=== PATIENT | male | born 1930 | race Caucasian/White ===

== ENCOUNTER 2017-01-27 11:32 | Emergency (ER) | payer MEDICARE ==
[~2017-01-27] VITALS: Ht 180.3 cm; Wt 108.9 kg
[~2017-01-27 11:32] MED LIST: "\\\"BP MED\\\""; FURO20TA4 PO; HYDR1TAB PO; METO-272 PO; PARO10TA21 PO; POTASSIUM
--- OUTSIDE RECORDS SUMMARY | 2017-01-27 11:40 | XMS REPORT ---
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
--- NOTE | 2017-01-27 12:08 | ED EENT ---
History of Present Illness General Chief Complaint: Nasal Problems Stated Complaint: NOSE BLEED Nursing Triage Note: pt reports his nose started bleeding three days ago. pt reports he saw Dr. Burciaga in his clinic yesterday and had his r nare cauterized and packed. Pt reports now the l and r side are bleeding. Source: patient Exam Limitations: no limitations History of Present Illness Time seen by provider: 12:05 Initial Comments To ER with reports of a nosebleed 3 days. He is not on any blood thinners he states. He saw Dr. Burciaga in his clinic yesterday for this and had cautery and packing to the right nostril. This morning he awakened and had blood coming from the left naris. He is scheduled to follow-up with Dr. Burciaga tomorrow at 345 p.m. Timing/Duration: this morning Severity: moderate Location: nose Allergies and Home Medications Allergies Coded Allergies: No Known Drug Allergies (Unverified , 05/09/10) Home Medications Metoprolol Succinate 50 Mg Tab.er.24h 50 MG PO DAILY (Reported) Review of Systems Constitutional: see HPI Eyes: No Symptoms Reported Ears: No Symptoms Reported Nose: see HPI clots congestion epistaxis Mouth: no symptoms reported Throat: no symptoms reported Respiratory: no symptoms reported Cardiovascular: no symptoms reported Musculoskeletal: no symptoms reported Skin: no symptoms reported Past Zhghbqy-Aidspy-Hitdwk Hx Patient Social History Alcohol Use: Past History Recreational Drug Use: No Smoking Status: Never a Smoker Recent Foreign Travel: No Contact w/Someone Who Travel: No Recent Infectious Disease Expo: No Recent Hopitalizations: No Immunizations Up To Date Tetanus Booster (TDap): Unknown PED Vaccines UTD: No Date of Pneumonia Vaccine: Dec 12, 2010 Date of Influenza Vaccine: Aug 11, 2015 Seasonal Allergies Seasonal Allergies: No Surgeries HX Surgeries: Yes (RIGHT KNEE) Surgeries: Orthopedic Respiratory Hx Respiratory Disorders: Yes Respiratory Disorders: Sleep Apnea Cardiovascular Hx Cardiac Disorders: Yes Cardiac Disorders: Hypertension Neurological Hx Neurological Disorders: Yes Reproductive System Hx Reproductive Disorders: No Sexually Transmitted Disease: No HIV/AIDS: No Genitourinary Hx Genitourinary Disorders: No ("SYEDA PENNY SAYS KIDNEYS ARE SLOW") Gastrointestinal Hx Gastrointestinal Disorders: No Musculoskeletal Hx Musculoskeletal Disorders: Yes Musculoskeletal Disorders: Arthritis Endocrine Hx Endocrine Disorders: No HEENT HX ENT Disorders: Yes (CAUTERIZED NOSEBLEED) HEENT Disorders: Cataract Loss of Vision: Denies Hearing Impairment: Hard of Hearing Cancer Hx Cancer: No Psychosocial Hx Psychiatric Problems: No Integumentary HX Skin/Integumentary Disorder: No Blood Transfusions Hx Blood Disorders: No Adverse Reaction to a Blood Tr: No Family Medical History Significant Family History: Heart Disease Family Medial History: Alcoholism 03 FATHER, Cancer 03 MOTHER, Family history: Arthritis 03 MOTHER, Family history: Diabetes mellitus 03 MOTHER, Headache 03 FATHER, 03 MOTHER, 09 BROTHER, 09 BROTHER, 09 SISTER, Myocardial infarction 03 FATHER, No Family History of: Abdominal aortic aneurysm Hayder's disease Aphasia Cancer of colon Cataract Chest pain Congenital heart disease Congestive heart failure Cystic fibrosis Dementia Dysphagia Family history: Allergy Family history: Alzheimer's disease Family history: Asthma Family history: Breast disease Family history: Cardiovascular disease Family history: Coronary thrombosis Family history: Gastrointestinal disease Family history: Glaucoma Family history: Hypertension Family history: Osteoporosis Family history: Thyroid disorder Hearing loss Heart disease Hereditary disease History of - anemia History of - disorder History of - respiratory disease History of drug abuse Human immunodeficiency virus (HIV) seropositivity Hypercholesterolemia Infertile Kidney disease Malignant neoplasm of lung Parkinson's disease Prostate cancer Psychotic disorder Seizure disorder Stroke Tuberculosis Visual impairment Physical Exam Vital Signs Vital Sign - Last 12Hours 01/27/17 11:49 Temp 97.6 Pulse 87 Resp 18 B/P 132/108 Pulse Ox 95 General Appearance: WD/WN no apparent distress Eyes: bilateral eye EOMI, bilateral eye PERRL, bilateral eye normal inspection Ears: bilateral ear TM normal, bilateral ear auricle normal, bilateral ear canal normal Nose: No active bleeding, other (clots easily suctioned out with no active bleeding seen at this time. We will observe him) Mouth/Throat: normal mouth inspection pharynx normal (dried blood in the mouth and oropharynx) Neck: non-tender full range of motion Respiratory: normal breath sounds no respiratory distress no accessory muscle use Neurologic/Psychiatric: alert normal mood/affect oriented x 3 Skin: normal color warm/dry Progress/Results/Core Measures Results/Orders Lab Results Laboratory Tests Test 01/27/17 12:19 Range/Units Anion Gap 10 5-14 MMOL/L BUN/Creatinine Ratio 15 Basophils # (Auto) 0.0 0.0-0.1 10^3/uL Basophils (%) (Auto) 0 0-10 % Blood Urea Nitrogen 26 H 7-18 MG/DL Calcium Level 8.4 L 8.5-10.1 MG/DL Carbon Dioxide Level 21 21-32 MMOL/L Chloride Level 108 H 98-107 MMOL/L Creatinine 1.71 H 0.60-1.30 MG/DL Eosinophils # (Auto) 0.3 0.0-0.3 10^3/uL Eosinophils (%) (Auto) 7 0-10 % Estimat Glomerular Filtration Rate 38 Glucose Level 117 H 70-105 MG/DL Hematocrit 37 L 40-54 % Hemoglobin 12.1 L 13.3-17.7 G/DL INR Comment 1.0 0.8-1.4 Lymphocytes # (Auto) 0.6 L 1.0-4.0 X 10^3 Lymphocytes (%) (Auto) 13 12-44 % Mean Corpuscular Hemoglobin 30 25-34 PG Mean Corpuscular Hemoglobin Concent 33 32-36 G/DL Mean Corpuscular Volume 92 80-99 FL Mean Platelet Volume 10.3 7.4-10.4 FL Monocytes # (Auto) 0.6 0.0-1.0 X 10^3 Monocytes (%) (Auto) 12 0-12 % Neutrophils # (Auto) 3.5 1.8-7.8 X 10^3 Neutrophils (%) (Auto) 68 42-75 % Platelet Count 188 130-400 10^3/uL Potassium Level 4.4 3.6-5.0 MMOL/L Prothrombin Time 13.0 12.2-14.7 SEC Red Blood Count 4.01 L 4.35-5.85 10^6/uL Red Cell Distribution Width 13.9 10.0-14.5 % Sodium Level 139 135-145 MMOL/L White Blood Count 5.1 4.3-11.0 10^3/uL My Orders Orders-ORACIO CHERY APRN Cbc With Automated Diff (01/27/17 12:05) Basic Metabolic Panel (01/27/17 12:05) Protime With Inr (01/27/17 12:05) Vital Signs/I&O Vital Sign - Last 12Hours 01/27/17 01/27/17 11:49 13:44 Temp 97.6 97.6 Pulse 87 85 Resp 18 18 B/P 132/108 Pulse Ox 95 96 Blood Pressure Mean: 116 Departure Communication Progress Notes 1237-patient is spitting up a small amount of blood that there is no blood dripping from the left Wilks now that I have removed his Kleenex. No blood dripping from the left Nare for at least 30 minutes despite sitting in the upright position. I think the blood that he is spitting up his previous clot from overnight and from the right side. 1300 still no bleeding, I was going to send patient home however he is concerned that if he lays flat he will start to bleed again. So I have laid him flat.- Impression Impression: Primary Impression: Epistaxis Disposition: 01 HOME, SELF-CARE Condition: Stable Departure-Patient Inst. Decision time for Depature: 13:30 Referrals: NO,LOCAL PHYSICIAN (PCP/Family) Primary Care Physician Patient Instructions: Nosebleeds (DC) Add. Discharge Instructions: 1. Return to ER for any concerns 2. Keep the packing in your right nose 3. Follow-up with Dr. Burciaga All discharge instructions reviewed with patient and/or family. Voiced understanding. ORACIO CHERY APRN Jan 27, 2017 12:08
[2017-01-27 12:27] LABS: BASOPHILS % (AUTO) 0 % (0-10); EOSINOPHILS # (AUTO) 0.3 10^3/uL (0.0-0.3); EOSINOPHILS % (AUTO) 7 % (0-10); LYMPHOCYTES # (AUTO) 0.6 X 10^3 (1.0-4.0); LYMPHOCYTES % (AUTO) 13 % (12-44); MEAN CORPUSCULAR HEMOGLOBIN 30 PG (25-34); MEAN CORPUSCULAR HGB CONC 33 G/DL (32-36); MEAN CORPUSCULAR VOLUME 92 FL (80-99); MEAN PLATELET VOLUME 10.3 FL (7.4-10.4); MONOCYTES # (AUTO) 0.6 X 10^3 (0.0-1.0); MONOCYTES % (AUTO) 12 % (0-12); NEUTROPHILS # (AUTO) 3.5 X 10^3 (1.8-7.8); NEUTROPHILS % (AUTO) 68 % (42-75); PLATELET COUNT 188 10^3/uL (130-400); RED BLOOD COUNT 4.01 10^6/uL (4.35-5.85); RED CELL DISTRIBUTION WIDTH 13.9 % (10.0-14.5); WHITE BLOOD COUNT 5.1 10^3/uL (4.3-11.0)
[2017-01-27 12:49] LABS: CALCIUM 8.4 MG/DL (8.5-10.1); CREATININE SERUM 1.71 MG/DL (0.60-1.30); POTASSIUM 4.4 MMOL/L (3.6-5.0)
[2017-01-27 13:44] VITALS: BP 132/98
[2017-01-28] MEDS ORDERED: DEXAMETHASONE PF 10 MG/ML (DECADRON) VIAL ONE (11:39)
[2017-01-28] MEDS ORDERED: LACTATED RINGERS 1,000 ML IV ONE (11:39)
[2017-01-28] MEDS ORDERED: SEVOFLURANE (ULTANE) 15 ML INHAL SOLN ONE ×3 (11:39→11:51)
[2017-01-28] MEDS ORDERED: proPOfol 200 MG/20 ML (DIPRIVAN) VIAL IV ONE (11:39)
[2017-01-28] MEDS ORDERED: LIDOCAINE PF 2% 10 ML (XYLOCAINE) AMP ONE (11:39)
[2017-01-28] MEDS ORDERED: HURRICAINE EXT TUBE (BENZOCAINE) ONE (11:39)
[2017-01-28] MEDS ORDERED: ATRACURIUM 50 MG/5 ML (TRACRIUM) IV ONE (11:39)
[2017-01-28] MEDS ORDERED: fentaNYL INJECTION 100 MCG/2 ML AMP ONE (11:40)
[2017-01-28] MEDS ORDERED: MIDAZOLAM 2 MG/2 ML (VERSED) VIAL ONE (11:41)
== END 2017-01-27 13:44 | disposition home or self-care (01) ==
LOC: EDUNIT# 11:32 → ER 11:33
DX: R04.0 Epistaxis (principal); I10 Essential (primary) hypertension; Z79.899 Other long term (current) drug therapy
CPT/HCPCS: 36415; 80048; 85025; 85610; 99283

== ENCOUNTER 2017-01-28 11:33 | Day surgery (SDC) | payer MEDICARE ==
[~2017-01-28] VITALS: Ht 180.3 cm; Wt 108.9 kg
[~2017-01-28 11:33] MED LIST changes: +COCAINE HCL 4% 2 ML SYR ONE; +LIDOCAINE/EPI 1%-1:100,000 (XYLOCAINE) 20ML ONE; +MUPIROCIN 2% OINT 22 GM (BACTROBAN) TUBE ONE; +PHENYLEPHRINE 0.5% NASAL SPR (NEO-SYNEPHRINE) REG ONE
[2017-01-28 12:01] VITALS: BP 120/85
--- NOTE | 2017-01-28 12:02 | Progress Note-Pre Operative ---
Pre-Operative Progress Note H&P Reviewed The H&P was reviewed, patient examined and no changes noted. Date H&P Reviewed: Jan 28, 2017 Time H&P Reviewed: 11:40 Pre-Operative Diagnosis: REcurrent Right Posterior Epistaxis BRENNAN PRUITT MD Jan 28, 2017 12:02 pm
[2017-01-28] MEDS ORDERED: PHENYLEPHRINE 0.5% NASAL SPR (NEO-SYNEPHRINE) REG ONE (12:30)
--- NOTE | 2017-01-28 12:42 | Progress Note-Post Operative ---
Post-Operative Progess Note Pre-Operative Diagnosis REcurrent Right Posterior Epistaxis Post-Operative Diagnosis same Post-Op Procedure Note Date of Procedure: Jan 28, 2017 Name of Procedure: Endoscopic Repari of Right Posteiror Epistaxis with Packing Anesthesia Type get Estimated blood loss (mL): BRENNAN De Leon MD Jan 28, 2017 12:42 pm
[2017-01-28] MEDS ORDERED: ACETAMINOPHEN 500 MG TAB (TYLENOL) PO PRN (12:45)
[2017-01-28] MEDS ORDERED: HYDROcodone/APAP 5 MG/325 MG (LORTAB) TAB PO PRN (12:45)
[2017-01-28] MEDS ORDERED: PROMETHAZINE INJ 25 MG/ML (PHENERGAN) AMP IV PRN (13:00)
[2017-01-28] MEDS ORDERED: morphine INJ 10 MG/ML 1ML (SYR OR VIAL) IV PRN (13:00)
[2017-01-28] MEDS ORDERED: MEPERIDINE (DEMEROL) INJ 50 MG/ML IV PRN (13:00)
[2017-01-28] MEDS ORDERED: fentaNYL INJECTION 100 MCG/2 ML AMP IV PRN (13:00)
[2017-01-28] MEDS ORDERED: ONDANSETRON 4 MG/2 ML (SDV) Z0FRAN IV PRN (13:00)
[2017-01-28] MEDS: D5 1/2 NS W/KCL 20 MEQ/L 1,000 ML IV SCH ×2 (14:23→22:36)
[2017-01-28 14:44] VITALS: BP 157/80
[2017-01-28] MEDS: PHENYLEPHRINE 0.5% NASAL SPR (NEO-SYNEPHRINE) REG PRN ×2 (15:33→20:37)
[2017-01-28 16:26] VITALS: BP 152/88
[2017-01-28] MEDS: MUPIROCIN 2% OINT 22 GM (BACTROBAN) TUBE NSEACH SCH (20:36)
[2017-01-28 20:44] VITALS: BP 136/78
[2017-01-28] MEDS ORDERED: MUPIROCIN 2% OINT 22 GM (BACTROBAN) TUBE NSEACH SCH (21:00)
[2017-01-29] VITALS: BP 136/78
[2017-01-29 04:05] VITALS: BP 147/86
[2017-01-29] MEDS ORDERED: SALINE NASAL SPRAY (OCEAN) 45 ML BTL PRN (06:45)
--- NOTE | 2017-01-29 06:48 | Progress Note-Standard ---
Standard Progress Note Progress Notes/Assess & Plan Progress/Assessment & Plan ENT-Gualberto Doing Well Minimal oozing since surgery-oozing related to him bothering his nose Packing is intact and dry OP DRy Will get him home mid afternoon as long as no sign bleeding will need to leave packing in until [id number] for removal Discharge prescriptions inchart patient may take home medications send home with nosebleed insturctions label and send home both ocean nasal spray to use prn to keep moist and neosynephrine to clau if bleeds Final Diagnosis Right Posterior Epistaxis BRENNAN PRUITT MD Jan 29, 2017 6:48 am
[2017-01-29] MEDS ORDERED: CATHETER FLUSH 10 ML SYR IV PRN (07:00)
[2017-01-29 07:58] VITALS: BP 168/72
[2017-01-29] MEDS: MUPIROCIN 2% OINT 22 GM (BACTROBAN) TUBE NSEACH SCH (10:06)
[2017-01-29] MEDS: D5 1/2 NS W/KCL 20 MEQ/L 1,000 ML IV SCH (11:42)
[2017-01-29 12:26] VITALS: BP 152/68
--- NOTE | 2017-01-29 12:37 | Anesthesia-General Post-Op ---
General Patient Condition Mental Status/LOC: Same as Preop Cardiovascular: Satisfactory Nausea/Vomiting: Absent Respiratory: Satisfactory Pain: Controlled Complications: Absent Post Op Complications Complications None Follow Up Care/Instructions Patient Instructions None needed. Anesthesia/Patient Condition Patient Condition Patient is doing well, no complaints, stable vital signs, no apparent adverse anesthesia problems. No complications reported per nursing. JUANITO GR CRNA Jan 29, 2017 12:37
[2017-01-29 15:45] VITALS: BP 135/81
[2017-01-29] MEDS ORDERED: RELABEL FOR HOME USE MC SCH (16:15)
[2017-01-29] MEDS ORDERED: SALINE NASAL SPRAY (OCEAN) 45 ML BTL SCH (16:30)
[2017-01-29] MEDS ORDERED: PHENYLEPHRINE 0.5% NASAL SPR (NEO-SYNEPHRINE) REG SCH (16:30)
== END 2017-01-29 17:10 | disposition home or self-care (01) ==
LOC: SDC 11:33 → 4TH 14:35 → SDC 01-29 17:10
PROVIDERS: ATTEND Otolaryngology Otolaryngology/Facial Plastic Surgery
DX: R04.0 Epistaxis (principal); I10 Essential (primary) hypertension; M19.90 Unspecified osteoarthritis, unspecified site
CPT/HCPCS: 94760

== ENCOUNTER 2017-10-04 09:27 | Emergency (ER) | payer MEDICARE ==
[~2017-10-04] VITALS: Ht 180.3 cm; Wt 99.8 kg
[~2017-10-04 09:27] MED LIST changes: -COCAINE HCL 4% 2 ML SYR ONE; -LIDOCAINE/EPI 1%-1:100,000 (XYLOCAINE) 20ML ONE; -METO-272 PO; +METO-370 PO; -MUPIROCIN 2% OINT 22 GM (BACTROBAN) TUBE ONE; -PHENYLEPHRINE 0.5% NASAL SPR (NEO-SYNEPHRINE) REG ONE
--- OUTSIDE RECORDS SUMMARY | 2017-10-04 09:33 | XMS REPORT ---
Author Author BENITA MATHIS Organization eClinicalWorks Address Unknown Phone Unavailable Care Team Providers Care Photographic Spotter Name Role Phone BENITA MATHIS CP Unavailable Allergies, Adverse Reactions, Alerts Substance Reaction Event Type N.K.D.A. 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 Active Assessment Dermoid cyst of arm, left D23.62 Active Assessment Dizziness R42 Active Problem Arthritis M19.90 Active Problem Chronic kidney disease N18.9 Active Medications No Known Medications Procedures Procedure Coding System Code Date Office Visit, Est Pt., Level 3 CPT-4 77154 Jul 10, 2016 [facility] VISIT ESTABLISHED PATIENT CPT-4 G0467 Jul 10, 2016 Vital Signs Date/Time: Jul 10, 2016 Cardiac Monitoring Heart Rate 78 bpm Weight 226.8 lbs Height 97 in BMI 16.95 Index Blood Pressure Diastolic 76 mmHg Blood Pressure Systolic 124 mmHg Results No Known Results Summary Purpose eClinicalWorks Submission
--- OUTSIDE RECORDS SUMMARY | 2017-10-04 09:33 | XMS REPORT ---
Author Author LESLY SAWYER [facility] eClinicalWorks Address Unknown Phone Unavailable Care Team Providers Care Plaster Pattern Caster Name Role Phone LESLY SAWYER CP Unavailable [...] Start Date End Date Status Dosage Hydrocodone-Acetaminophen [facility] [address]-64 5-325 MG Orally bid, prn pain Sep 29, 2015 1 Results No Known Results Summary Purpose eClinicalWorks Submission
--- OUTSIDE RECORDS SUMMARY | 2017-10-04 09:33 | XMS REPORT ---
Author Author BORA BAKER Organization [facility] Address [address] [place] [address] Care Team Providers Care Manager Labor Relations Name Role Phone BORA BAKER Unavailable PROBLEMS Type Condition ICD9-CM Code [id number] Code Onset Dates Condition Status SNOMED Code Problem Interstitial lung disease J84.9 Active 480211258 Problem Chronic fatigue R53.82 Active 91831439 Problem Vertigo R42 Active 212748726 Problem Arthritis M19.90 Active 3650951 Problem Chronic kidney disease N18.9 Active 560389627 Problem Enlarged prostate with lower urinary tract symptoms N40.1 Active 581050052 Problem Hypertension I10 Active 00017952 ALLERGIES No Known Allergies SOCIAL HISTORY Never Assessed PLAN OF CARE Activity Details Follow Up prn Reason: VITAL SIGNS Height 97 in 2017-01-24 Weight 234.0 lbs 2017-01-24 Temperature 99.2 degrees Fahrenheit 2017-01-24 Heart Rate 82 bpm 2017-01-24 Respiratory Rate 20 2017-01-24 Oximetry 96 % 2017-01-24 BMI 17.48 kg/m2 2017-01-24 Blood pressure systolic 134 mmHg 2017-01-24 Blood pressure diastolic 90 mmHg 2017-01-24 MEDICATIONS Medication Instructions Dosage Frequency Start Date End Date Duration Status Keflex 500 MG Orally every 8 hrs 1 capsule 8h Jan, Jan, 5 days Active RESULTS Name Result Date Reference Range TSH 2017-01-24 TSH 3.810 0.450-4.500 CBC 2017-01-24 WBC 5.2 3.4-10.8 RBC 4.11 4.14-5.80 Hemoglobin 12.1 12.6-17.7 Hematocrit 37.1 37.5-51.0 MCV 90 79-97 MCH 29.4 26.6-33.0 MCHC 32.6 31.5-35.7 RDW 14.6 12.3-15.4 Platelets 205 150-379 Neutrophils 69 Lymphs 12 Monocytes 15 Eos 4 Basos 0 Neutrophils (Absolute) 3.6 1.4-7.0 Lymphs (Absolute) 0.6 0.7-3.1 Monocytes(Absolute) 0.8 0.1-0.9 Eos (Absolute) 0.2 0.0-0.4 Baso (Absolute) 0.0 0.0-0.2 Immature Granulocytes 0 Immature Grans (Abs) 0.0 0.0-0.1 LIPID PANEL 2017-01-24 Cholesterol, Total 125 100-199 Triglycerides 92 0-149 HDL Cholesterol 50 >39 VLDL Cholesterol Keven 18 5-40 LDL Cholesterol Calc 57 0-99 CMP 2017-01-24 Glucose, Serum 98 65-99 BUN 34 8-27 Creatinine, Serum 1.94 0.76-1.27 eGFR If NonAfricn Am 31 >59 eGFR If Africn Am 35 >59 BUN/Creatinine Ratio 18 10-22 Sodium, Serum 141 134-144 Potassium, Serum 5.2 3.5-5.2 Chloride, Serum 101 96-106 Carbon Dioxide, Total 22 18-29 Calcium, Serum 8.6 8.6-10.2 Protein, Total, Serum 6.4 6.0-8.5 Albumin, Serum 3.8 3.5-4.7 Globulin, Total 2.6 1.5-4.5 A/G Ratio 1.5 1.2-2.2 Bilirubin, Total <0.2 0.0-1.2 Alkaline Phosphatase, S 74 39-117 AST (SGOT) 7 0-40 ALT (SGPT) 6 0-44 PROCEDURES Procedure Date Ordered Result Body Site MEASURE BLOOD OXYGEN LEVEL January 24, 2017 [facility] January [facility], 2017 [facility] VISIT ESTABLISHED PATIENT January 24, 2017 VENIPUNCT, ROUTINE* January 24, 2017 IMMUNIZATIONS No Known Immunizations MEDICAL (GENERAL) HISTORY Type Description Date Medical History hypertension Medical History Heart attack-2011 Medical History Arthritis Medical History Chronic kidney disease Medical History Enlarged prostate with lower urinary tract symptoms Medical History Interstitial lung disease Medical History cataracts Surgical History Total Right knee replacement Hospitalization History stayed in [facility] for R. knee problems
--- OUTSIDE RECORDS SUMMARY | 2017-10-04 09:33 | XMS REPORT ---
Author Author LESLY SAWYER Organization [facility] Address [address] [place] [address] Care Team Providers Care Personnel Coordinator Name Role Phone LESLY SAWYER Unavailable PROBLEMS Type Condition ICD9-CM Code [id number] Code Onset Dates Condition Status SNOMED Code Problem Interstitial lung disease J84.9 Active 092740919 Problem Chronic fatigue R53.82 Active 44547709 Problem Vertigo R42 Active 992937304 Problem Arthritis M19.90 Active 0149818 Problem Chronic kidney disease N18.9 Active 858689267 Problem Enlarged prostate with lower urinary tract symptoms N40.1 Active 947800524 Problem Hypertension I10 Active 26704566 ALLERGIES No Information SOCIAL HISTORY Never Assessed PLAN OF CARE VITAL SIGNS MEDICATIONS Unknown Medications RESULTS Name Result Date Reference Range PTT 2017-01-25 aPTT 31 24-33 PT/INR 2017-01-25 INR 1.0 0.8-1.2 Prothrombin Time 10.4 9.1-12.0 PROCEDURES Procedure Date Ordered Result Body Site LAB NOT BILLED BY [facility] January 25, 2017 PROTHROMBIN TIME January 25, 2017 VENIPUNCT, ROUTINE* January 25, 2017 IMMUNIZATIONS No Known Immunizations MEDICAL (GENERAL) HISTORY Type Description Date Medical History hypertension Medical History Heart attack-2010 Medical History Arthritis Medical History Chronic kidney disease Medical History Enlarged prostate with lower urinary tract symptoms Medical History Interstitial lung disease Medical History cataracts Surgical History Total Right knee replacement Hospitalization History stayed in [facility] for R. knee problems
--- OUTSIDE RECORDS SUMMARY | 2017-10-04 09:33 | XMS REPORT ---
Author Author LESLY SAWYER [facility] Address [address] [place] [address] Care Team Providers Care Body Specialist Name Role Phone LESLY SAWYER Unavailable PROBLEMS Type Condition ICD9-CM Code [id number] Code Onset Dates Condition Status SNOMED Code Problem Interstitial lung disease J84.9 Active 580354953 Problem Chronic fatigue R53.82 Active 09387003 Problem Vertigo R42 Active 814695843 Problem Arthritis M19.90 Active 4114891 Problem Chronic kidney disease N18.9 Active 459356847 Problem Enlarged prostate with lower urinary tract symptoms N40.1 Active 335727903 Problem Hypertension I10 Active 75573743 ALLERGIES No Information SOCIAL HISTORY Never Assessed PLAN OF CARE VITAL SIGNS MEDICATIONS Unknown Medications RESULTS No Results PROCEDURES No Known procedures IMMUNIZATIONS No Known Immunizations MEDICAL (GENERAL) HISTORY Type Description Date Medical History hypertension Medical History Heart attack-2010 Medical History Arthritis Medical History Chronic kidney disease Medical History Enlarged prostate with lower urinary tract symptoms Medical History Interstitial lung disease Medical History cataracts Surgical History Total Right knee replacement Hospitalization History stayed in [facility] for R. knee problems
--- OUTSIDE RECORDS SUMMARY | 2017-10-04 09:33 | XMS REPORT ---
Author Author LESLY SAWYER [facility] Address [address] [place] [address] Care Team Providers Care Experimental Psychologist Name Role Phone LESLY SAWYER Unavailable PROBLEMS Type Condition ICD9-CM Code EBM26-BD Code Onset Dates Condition Status SNOMED Code Problem Interstitial lung disease J84.9 Active 817357381 Problem Chronic fatigue R53.82 Active 57249670 Problem Vertigo R42 Active 914273458 Problem Arthritis M19.90 Active 6271836 Problem Chronic kidney disease N18.9 Active 043960591 Problem Enlarged prostate with lower urinary tract symptoms N40.1 Active 227999865 Problem Hypertension I10 Active 30380362 ALLERGIES No Known Allergies SOCIAL HISTORY Never Assessed PLAN OF CARE Activity Details Follow Up 3 Months Reason: VITAL SIGNS Height 71 in 2017-04-01 Weight 217 lbs 2017-04-01 Temperature 98.0 degrees Fahrenheit 2017-04-01 Heart Rate 70 bpm 2017-04-01 Respiratory Rate 18 2017-04-01 BMI 30.26 kg/m2 2017-04-01 Blood pressure systolic 118 mmHg 2017-04-01 Blood pressure diastolic 72 mmHg 2017-04-01 MEDICATIONS Medication Instructions Dosage Frequency Start Date End Date Duration Status Tramadol HCl 50 mg Orally 3 times a day 1 tablet as needed 8h March, March, 0 days Active RESULTS No Results PROCEDURES Procedure Date Ordered Result Body Site [facility] VISIT ESTABLISHED PATIENT April 01, 2017 IMMUNIZATIONS No Known Immunizations MEDICAL (GENERAL) HISTORY Type Description Date Medical History hypertension Medical History Heart attack-2010 Medical History Arthritis Medical History Chronic kidney disease Medical History Enlarged prostate with lower urinary tract symptoms Medical History Interstitial lung disease Medical History cataracts Surgical History Total Right knee replacement Hospitalization History stayed in [facility] for R. knee problems
--- OUTSIDE RECORDS SUMMARY | 2017-10-04 09:33 | XMS REPORT ---
Author Author LESLY SAWYER [facility] Address [address] [place] [address] Care Team Providers Care Senior Librarian Name Role Phone LESLY SAWYER Unavailable PROBLEMS Type Condition ICD9-CM Code [id number] Code Onset Dates Condition Status SNOMED Code Assessment Vertigo R42 Jul, Active 796327506 Assessment Skin lesion L98.9 Jul, Active 00845800 Problem Vertigo R42 Active 745531206 Problem Enlarged prostate with lower urinary tract symptoms N40.1 Active 769500165 Problem Arthritis M19.90 Active 4059859 Problem Chronic kidney disease N18.9 Active 142315761 Problem Hypertension I10 Active 42433559 Problem Interstitial lung disease J84.9 Active 196065146 ALLERGIES Substance Reaction Event Type Date Status N.K.D.A. Unknown Non Drug Allergy Jul, Unknown SOCIAL HISTORY No smoking Hx information available PLAN OF CARE VITAL SIGNS Height 97 in 2016-07-13 Weight 225.3 lbs 2016-07-13 Heart Rate 76 bpm 2016-07-13 Respiratory Rate 20 2016-07-13 BMI 16.83 kg/m2 2016-07-13 Blood pressure systolic 112 mmHg 2016-07-13 Blood pressure diastolic 78 mmHg 2016-07-13 MEDICATIONS Medication Instructions Dosage Frequency Start Date End Date Duration Status Meclizine HCl 25 MG Orally 3 times a day 1 tablet as needed 8h Jul, Active Hydrocodone-Acetaminophen 5-325 MG Orally bid, prn pain 1 Sep, Active RESULTS No Results PROCEDURES Procedure Date Ordered Related Diagnosis Body Site [facility] VISIT ESTABLISHED PATIENT Jul 13, 2016 Office Visit, Est Pt., Level 3 Jul 13, 2016 IMMUNIZATIONS No Known Immunizations
--- OUTSIDE RECORDS SUMMARY | 2017-10-04 09:33 | XMS REPORT ---
Author LESLY Zazueta Organization [employer] Address Unknown Phone Unavailable Care Team Providers Care Customer Support Executive Name Role Phone LESLY SAWYER CP Unavailable Allergies No Known Allergies Problems Problem Type Condition Code Onset Dates Condition Status Problem Pain in joint, forearm 719.43 Active Problem Essential hypertension, benign 401.1 Active Problem Dehydration 276.51 Active Problem Epistaxis 784.7 Active Problem Chronic kidney disease, unspecified 585.9 Active Medications No Known Medications Results No Known Results Summary Purpose eClinicalWorks Submission
--- OUTSIDE RECORDS SUMMARY | 2017-10-04 09:33 | XMS REPORT ---
Author Author LESLY SAWYER [facility] eClinicalWorks Address Unknown Phone Unavailable Care Team Providers Care Automobile Parker Name Role Phone LESLY SAWYER CP Unavailable Allergies, Adverse Reactions, Alerts Substance Reaction Event Type N.K.D.A. Info Not Available Non Drug Allergy Problems Problem Type Condition Code Onset Dates Condition Status Assessment Chronic kidney disease N18.9 Active Assessment Hypertension I10 Active Problem Interstitial lung disease J84.9 Active Problem Arthritis M19.90 Active Problem Hypertension I10 Active Assessment Encounter for immunization Z23 Active Assessment Arthritis M19.90 Active Problem Chronic kidney disease N18.9 Active Assessment Interstitial lung disease J84.9 Active Medications Medication Code System Code Instructions Start Date End Date Status Dosage Metoprolol Succinate NDC 0 50 mg Sep 14, 2014 take 1 tablet (50 mg ) by oral route once daily Procedures Procedure Coding System Code Date Office Visit, Est Pt., Level 3 CPT-4 62621 Sep 02, 2015 FLUARIX QUAD (3 & UP)-GSK-2014 CPT-4 72199 Sep 02, 2015 [facility] VISIT ESTABLISHED PATIENT CPT-4 G0467 Sep 02, 2015 SINGLE IMMUNIZATION ADMIN CPT-4 37054 Sep 02, 2015 Vital Signs Date/Time: Sep 02, 2015 Temperature 98.8 F Weight 224.2 lbs Height 97 in BMI 16.75 Index Blood Pressure Diastolic 80 mmHg Blood Pressure Systolic 138 mmHg Cardiac Monitoring Heart Rate 70 bpm Results No Known Results Immunizations Vaccine Administration Date FLUARIX QUAD (3 & UP)-GSK-2014Sep 02, 2015 Summary Purpose eClinicalWorks Submission
--- OUTSIDE RECORDS SUMMARY | 2017-10-04 09:33 | XMS REPORT ---
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
--- OUTSIDE RECORDS SUMMARY | 2017-10-04 09:34 | XMS REPORT ---
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
--- OUTSIDE RECORDS SUMMARY | 2017-10-04 09:34 | XMS REPORT ---
Author Author LESLY SAWYER [facility] eClinical[employer] Address Unknown Phone Unavailable Care Team Providers Care Instant Potato Processor Name Role Phone LESLY SAWYER CP Unavailable Allergies, Adverse Reactions, Alerts Substance Reaction Event Type N.K.D.A. Info Not Available Non Drug Allergy Problems Problem Type Condition Code Onset Dates Condition Status Assessment Enlarged prostate with lower urinary tract symptoms N40.1 Active Problem Hypertension I10 Active Problem Interstitial lung disease J84.9 Active Problem Enlarged prostate with lower urinary tract symptoms N40.1 Active Assessment Arthritis M19.90 Active Assessment Hypertension I10 Active Problem Arthritis M19.90 Active Problem Chronic kidney disease N18.9 Active Medications Medication Code System Code Instructions Start Date End Date Status Dosage Metoprolol Succinate NDC 0 50 mg Sep 14, 2014 take 1 tablet (50 mg ) by oral route once daily Hydrocodone-Acetaminophen NDC [address]-19 5-325 MG Orally every 6 hrs Sep 29, 2015 1 tablet as needed Procedures Procedure Coding System Code Date URINALYSIS, AUTO, W/O SCOPE CPT-4 68623 Sep 29, 2015 VENIPUNCT, ROUTINE* CPT-4 02708 Sep 29, 2015 ASSAY OF PSA, TOTAL CPT-4 56746 Sep 29, 2015 Office Visit, Est Pt., Level 3 CPT-4 35786 Sep 29, 2015 [facility] VISIT ESTABLISHED PATIENT CPT-4 G0467 Sep 29, 2015 Vital Signs Date/Time: Sep 29, 2015 Cardiac Monitoring Heart Rate 80 bpm Temperature 96.5 F Height 97 in Blood Pressure Diastolic 94 mmHg Blood Pressure Systolic 130 mmHg Results Name Result Date Reference Range Unit Abnormality Flag UA LONG DIP (IN HOUSE) PSA ----Prostate Specific Ag, Serum 2.4 [id number] 0.0-4.0 ng/mL Summary Purpose eClinicalWorks Submission
--- OUTSIDE RECORDS SUMMARY | 2017-10-04 09:34 | XMS REPORT ---
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 knee problems
--- OUTSIDE RECORDS SUMMARY | 2017-10-04 09:34 | XMS REPORT | Continuity of Care Document ---
Author Author [facility] Address Unknown Phone Unavailable Allergies Active Description Code Type Severity Reaction Onset Reported/Identified Relationship to Patient Clinical Status Yes No Known Drug Allergies [id number] Drug Allergy Unknown N/ A 05/09/2010 Medications Problems Date Dx Coded Attending Type Code Diagnosis Diagnosed By 01/09/2014 ANJALI CHAVEZ MD Ot 412 OLD MYOCARDIAL INFARCT 01/09/2014 ANJALI CHAVEZ MD Ot 585.9 CHRONIC KIDNEY DISEASE, UNSPECIFIED 01/09/2014 ANJALI CHAVEZ MD Ot 716.90 ARTHROPATHY NOS-UNSPEC 01/09/2014 ANJALI CHAVEZ MD Ot 722.4 CERVICAL DISC DEGEN 01/09/2014 ANJALI CHAVEZ MD Ot 729.5 PAIN IN LIMB 01/09/2014 ANJALI CHAVEZ MD Ot V12.54 PERSONAL HX OF TIA, CEREBRAL INFARCTION 08/24/2014 MAIKEL FAJARDO APRN 719.43 PAIN IN JOINT INVOLVING FOREARM 08/24/2014 SANDRA SANDS DOA K 719.43 PAIN IN JOINT INVOLVING FOREARM 08/24/2014 SHAVON MORENO DARSHANA K 719.43 PAIN IN JOINT INVOLVING FOREARM 08/24/2014 SHAVON MORENO DARSHANA K 719.43 PAIN IN JOINT INVOLVING FOREARM 08/24/2014 SHAVON MORENO DARSHANA K 719.43 PAIN IN JOINT INVOLVING FOREARM 08/24/2014 LESLY SAWYER MD 719.43 PAIN IN JOINT INVOLVING FOREARM 09/06/2014 SANDS DO DARSHANA K 401.1 HYPERTENSION, BENIGN ESSENTIAL 09/06/2014 SANDS DO DARSHANA K 784.7 EPISTAXIS 09/06/2014 SANDS DO DARSHANA K 401.1 HYPERTENSION, BENIGN ESSENTIAL 09/06/2014 SANDS , DARSHANA K 784.7 EPISTAXIS 09/06/2014 SANDS DO DARSHANA K 401.1 HYPERTENSION, BENIGN ESSENTIAL 09/06/2014 SANDS DO, DARSHANA K 784.7 EPISTAXIS 09/06/2014 SANDS SANDRA MORENOA K 401.1 HYPERTENSION, BENIGN ESSENTIAL 09/06/2014 SANDS DARSHANA MORENO K 784.7 EPISTAXIS 09/06/2014 LESLY SAWYER MD 401.1 HYPERTENSION, BENIGN ESSENTIAL 09/06/2014 LESLY SAWYER MD 784.7 EPISTAXIS 09/07/2014 SANDS DO DARSHANA K 585.9 CHRONIC KIDNEY DISEASE, UNSPECIFIED 09/07/2014 SANDS DO DARSHANA K 585.9 CHRONIC KIDNEY DISEASE, UNSPECIFIED 09/07/2014 SANDS , DARSHANA K 585.9 CHRONIC KIDNEY DISEASE, UNSPECIFIED 09/07/2014 SANDS DO DARSHANA K 585.9 CHRONIC KIDNEY DISEASE, UNSPECIFIED 09/07/2014 LESLY SAWYER MD 585.9 CHRONIC KIDNEY DISEASE, UNSPECIFIED 09/14/2014 SANDRA SANDS DOA K 276.51 DEHYDRATION 09/14/2014 SANDRA SANDS DOA K 276.51 DEHYDRATION 09/14/2014 LESLY SAWYER MD 276.51 DEHYDRATION 02/28/2015 LESLY SAWYER MD 728.87 MUSCLE WEAKNESS (GENERALIZED) 02/28/2015 LESLY SAWYER MD 784.7 EPISTAXIS 09/15/2015 ANJALI CHAVEZ MD Ot F03.90 UNSPECIFIED DEMENTIA WITHOUT BEHAVIORAL 09/15/2015 ANJALI CHAVEZ MD Ot F10.21 ALCOHOL DEPENDENCE, IN REMISSION 09/15/2015 ANJALI CHAVEZ MD Ot G47.30 SLEEP APNEA, UNSPECIFIED 09/15/2015 ANJALI CHAVEZ MD Ot I12.9 HYPERTENSIVE CHRONIC KIDNEY DISEASE W ST 09/15/2015 ANJALI CHAVEZ MD Ot M17.12 UNILATERAL PRIMARY OSTEOARTHRITIS, LEFT 09/15/2015 ANJALI CHAVEZ MD Ot N18.9 CHRONIC KIDNEY DISEASE, UNSPECIFIED 09/15/2015 ANJALI CHAVEZ MD Ot Z96.651 PRESENCE OF RIGHT ARTIFICIAL KNEE JOINT 01/27/2017 ORACIO CHERY APRN Ot I10 ESSENTIAL (PRIMARY) HYPERTENSION 01/27/2017 ORACIO CHERY APRN Ot R04.0 EPISTAXIS 01/27/2017 ORACIO CHERY APRN Ot Z79.899 OTHER DRY STARCH OPERATOR (CURRENT) DRUG THERAPY 01/29/2017 CHERY, PETER J HEATSET WINDER OPERATOR Ot I10 ESSENTIAL (PRIMARY) HYPERTENSION 01/29/2017 ORACIO CHERY HEATSET WINDER OPERATOR Ot R04.0 EPISTAXIS 01/29/2017 ORACIO CHERY HEATSET WINDER OPERATOR Ot Z79.899 OTHER HALFWAY (CURRENT) DRUG THERAPY 01/29/2017 BRENNAN PRUITT MD Ot I10 ESSENTIAL (PRIMARY) HYPERTENSION 01/29/2017 BRENNAN PRUITT MD Ot M19.90 UNSPECIFIED OSTEOARTHRITIS, UNSPECIFIED 01/29/2017 BRENNAN PRUITT MD Ot R04.0 EPISTAXIS 01/30/2017 BRENNAN PRUITT MD Ot I10 ESSENTIAL (PRIMARY) HYPERTENSION 01/30/2017 BRENNAN PRUITT MD Ot M19.90 UNSPECIFIED OSTEOARTHRITIS, UNSPECIFIED 01/30/2017 BRENNAN PRUITT MD Ot R04.0 EPISTAXIS 02/03/2017 BRENNAN PRUITT MD Ot I10 ESSENTIAL (PRIMARY) HYPERTENSION 02/03/2017 BRENNAN PRUITT MD, Ot M19.90 UNSPECIFIED OSTEOARTHRITIS, UNSPECIFIED 02/03/2017 BRENNAN PRUITT MD Ot R04.0 EPISTAXIS Procedures Code [place] [address] XRAY WRIST L COMP MIN 3 VIEWS 08/24/2014 ORTHOPEDI BRENNAN WISE 08/24/2014 92537 ROUTINE VENIPUNCTURE 09/06/2014 92490 CMP 09/06/2014 25854 INR (IN HOUSE) 76448 HEMOGLOBIN (IN-HOUSE) 09/08/2014 NEPHROLOG [facility], 09/14/2014 66949 ROUTINE VENIPUNCTURE 02/28/2015 45431 CBC 03/01/2015 [id number] DRAINAGE OF LEFT KNEE JOINT, PERCUTANEOU 09/13/2015 Results Test Result Range Complete blood count (CBC) with automated white blood cell (WBC) differential - 01/27/17 12:19 Blood leukocytes automated count (number/volume) 5.1 10*3/ uL 4.3-11.0 Blood erythrocytes automated count (number/volume) 4.01 10*6 /uL 4.35-5.85 Venous blood hemoglobin measurement (mass/volume) 12.1 g/dL 13.3-17.7 Blood hematocrit (volume fraction) 37 % 40-54 Automated erythrocyte mean corpuscular volume 92 [foz_us] 80-99 Automated erythrocyte mean corpuscular hemoglobin (mass per erythrocyte) 30 pg 25-34 Automated erythrocyte mean corpuscular hemoglobin concentration measurement ( mass/volume) 33 g/dL 32-36 Automated erythrocyte distribution width ratio 13.9 % 10.0-14.5 Automated blood platelet count (count/volume) 188 10*3/uL 130-400 Automated blood platelet mean volume measurement 10.3 [foz_ us] 7.4-10.4 Automated blood neutrophils/100 leukocytes 68 % 42-75 Automated blood lymphocytes/100 leukocytes 13 % 12-44 Blood monocytes/100 leukocytes 12 % 0-12 Automated blood eosinophils/100 leukocytes 7 % 0-10 Automated blood basophils/100 leukocytes 0 % 0-10 Blood neutrophils automated count (number/volume) 3.5 10*3 1.8-7.8 Blood lymphocytes automated count (number/volume) 0.6 10*3 1.0-4.0 Blood monocytes automated count (number/volume) 0.6 10*3 0.0-1.0 Automated eosinophil count 0.3 10*3/uL 0.0-0.3 Automated blood basophil count (count/volume) 0.0 10*3/uL 0.0-0.1 PT panel in platelet poor plasma by coagulation assay - 01/27/17 12:19 Prothrombin time (PT) in platelet poor plasma by coagulation assay 13.0 s 12.2-14.7 INR in platelet poor plasma or blood by coagulation assay 1.0 0.8-1.4 Whole blood basic metabolic panel - 01/27/17 12:19 Serum or plasma sodium measurement (moles/volume) 139 mmol/ L 135-145 Serum or plasma potassium measurement (moles/volume) 4.4 mmol/L 3.6-5.0 Serum or plasma chloride measurement (moles/volume) 108 mmol /L 98-107 Carbon dioxide 21 mmol/L 21-32 Serum or plasma anion gap determination (moles/volume) 10 mmol/L 5-14 Serum or plasma urea nitrogen measurement (mass/volume) 26 mg/dL 7-18 Serum or plasma creatinine measurement (mass/volume) 1.71 mg /dL 0.60-1.30 Serum or plasma urea nitrogen/creatinine mass ratio 15 NRG Serum or plasma creatinine measurement with calculation of estimated glomerular filtration rate 38 NRG Serum or plasma glucose measurement (mass/volume) 117 mg/dL 70-105 Serum or plasma calcium measurement (mass/volume) 8.4 mg/dL 8.5-10.1 Encounters ACCT No. Visit Date/Time Discharge Status Pt. Type Provider Facility Loc./Unit Complaint [id number] 02/28/2015 16:49:00 02/28/2015 23: 59:59 CLS Outpatient LESLY SAWYER MD [id number] 09/14/2014 14:52:00 09/14/2014 23: 59:59 CLS Outpatient DARSHANA SANDS DO [id number] 09/08/2014 10:39:00 09/08/2014 23: 59:59 CLS Outpatient DARSHANA SANDS DO [id number] 09/08/2014 10:39:00 09/08/2014 23: 59:59 CLS Outpatient DARSHANA SANDS DO [id number] 09/06/2014 16:07:00 09/06/2014 23: 59:59 CLS Outpatient DARSHANA SANDS DO [id number] 08/24/2014 14:30:00 08/24/2014 23: 59:59 CLS Outpatient MAIKEL FAJARDO APRN [id number] 01/28/2017 11:33:00 2016 17:10:00 DIS Outpatient BRENNAN PRUITT MD [facility] BILAT NOSE BLEED [id number] 01/27/2017 11:33:00 2016 13:44:00 DIS Emergency ORACIO CHERY APRN [facility] ER NOSE BLEED [id number] 09/13/2015 03:12:00 2014 16:35:00 DIS Inpatient ANJALI CHAVEZ MD [facility] 4TH SEPTIC ARTHRITIS OF LEFT KNEE [id number] 01/08/2014 22:00:00 2013 22:04:00 DIS Inpatient ANJALI CHAVEZ MD [facility] CSD L NECK PAIN, ARM PAIN,RENAL INSUFF [id number] 10/04/2017 09:29:00 ACT Emergency JANELLE KRAUS DO [facility] ER L KNEE PAIN
--- OUTSIDE RECORDS SUMMARY | 2017-10-04 09:34 | XMS REPORT ---
Author Author NAIF CRUZ [facility] Address [address] [place] [address] Care Team Providers Care Product Safety Compliance Leader Name Role Phone NAIF CRUZ Unavailable PROBLEMS Type Condition ICD9-CM Code CGJ26-MI Code Onset Dates Condition Status SNOMED Code Problem Interstitial lung disease J84.9 Active 473548912 Problem Chronic fatigue R53.82 Active 08516788 Problem Vertigo R42 Active 124260143 Problem Arthritis M19.90 Active 5078218 Problem Chronic kidney disease N18.9 Active 440909593 Problem Enlarged prostate with lower urinary tract symptoms N40.1 Active 859766321 Problem Hypertension I10 Active 22218986 ALLERGIES No Known Allergies SOCIAL HISTORY Never Assessed PLAN OF CARE VITAL SIGNS Height 71 in 2017-03-27 Weight 234 lbs 2017-03-27 Temperature 98.3 degrees Fahrenheit 2017-03-27 Heart Rate 76 bpm 2017-03-27 Respiratory Rate 16 2017-03-27 Oximetry 94 % 2017-03-27 BMI 32.63 kg/m2 2017-03-27 Blood pressure systolic 128 mmHg 2017-03-27 Blood pressure diastolic 88 mmHg 2017-03-27 MEDICATIONS Medication Instructions Dosage Frequency Start Date End Date Duration Status Levaquin 500 mg Orally Once a day 1 tablet 24h March, March, 07 days Active RESULTS Name Result Date Reference Range TSH 2017-03-27 TSH 2.500 0.450-4.500 CBC 2017-03-27 WBC 6.1 3.4-10.8 RBC 4.56 4.14-5.80 Hemoglobin 12.9 12.6-17.7 Hematocrit 41.0 37.5-51.0 MCV 90 79-97 MCH 28.3 26.6-33.0 MCHC 31.5 31.5-35.7 RDW 14.9 12.3-15.4 Platelets 273 150-379 Neutrophils 68 Lymphs 17 Monocytes 12 Eos 3 Basos 0 Neutrophils (Absolute) 4.1 1.4-7.0 Lymphs (Absolute) 1.0 0.7-3.1 Monocytes(Absolute) 0.7 0.1-0.9 Eos (Absolute) 0.2 0.0-0.4 Baso (Absolute) 0.0 0.0-0.2 Immature Granulocytes 0 Immature Grans (Abs) 0.0 0.0-0.1 CRP, CARDIAC 2017-03-27 C-Reactive Protein, Cardiac 9.67 0.00-3.00 LIPID PANEL 2017-03-27 Cholesterol, Total 113 100-199 Triglycerides 60 0-149 HDL Cholesterol 47 >39 VLDL Cholesterol Keven 12 5-40 LDL Cholesterol Calc 54 0-99 CMP 2017-03-27 Glucose, Serum 106 65-99 BUN 35 8-27 Creatinine, Serum 2.52 0.76-1.27 eGFR If NonAfricn Am 22 >59 eGFR If Africn Am 26 >59 BUN/Creatinine Ratio 14 10-24 Sodium, Serum 137 134-144 Potassium, Serum 4.6 3.5-5.2 Chloride, Serum 99 96-106 Carbon Dioxide, Total 20 18-29 Calcium, Serum 8.8 8.6-10.2 Protein, Total, Serum 6.9 6.0-8.5 Albumin, Serum 3.9 3.5-4.7 Globulin, Total 3.0 1.5-4.5 A/G Ratio 1.3 1.2-2.2 Bilirubin, Total 0.3 0.0-1.2 Alkaline Phosphatase, S 86 39-117 AST (SGOT) 10 0-40 ALT (SGPT) 8 0-44 Xray : Chest (IN HOUSE) 2017-03-27 PROCEDURES Procedure Date Ordered Result Body Site EKG, TRACING (IN-HOUSE) 2017-03-27 N/A MEASURE BLOOD OXYGEN LEVEL March 27, 2017 VENIPUNCT, ROUTINE* March 27, 2017 LAB NOT BILLED BY [facility] March 27, 2017 ELECTROCARDIOGRAM, TRACING March 27, 2017 CHEST X-RAY March 27, 2017 [facility] VISIT ESTABLISHED PATIENT March 27, 2017 IMMUNIZATIONS No Known Immunizations MEDICAL (GENERAL) HISTORY Type Description Date Medical History hypertension Medical History Heart attack-2011 Medical History Arthritis Medical History Chronic kidney disease Medical History Enlarged prostate with lower urinary tract symptoms Medical History Interstitial lung disease Medical History cataracts Surgical History Total Right knee replacement Hospitalization History stayed in [facility] for R. knee problems
--- OUTSIDE RECORDS SUMMARY | 2017-10-04 09:34 | XMS REPORT ---
Author LESLY Zazueta [facility] eClinicalWorks Address Unknown Phone Unavailable Care Team Providers Care Blower Room Attendant Name Role Phone LESLY SAWYER CP Unavailable Allergies, Adverse Reactions, Alerts Substance Reaction Event Type N.K.D.A. Info Not Available Non Drug Allergy Problems Problem Type Condition Code Onset Dates Condition Status Problem Pain in joint, forearm 719.43 Active Problem Essential hypertension, benign 401.1 Active Problem Dehydration 276.51 Active Assessment Hemoptysis R04.2 Active Assessment Dyspnea R06.00 Active Problem Epistaxis 784.7 Active Problem Chronic kidney disease, unspecified 585.9 Active Medications No Known Medications Procedures Procedure Coding System Code Date COMPLETE CBC W/AUTO DIFF WBC CPT-4 43569 Aug 18, 2015 NATRIURETIC PEPTIDE CPT-4 28314 Aug 18, 2015 COMPREHEN METABOLIC PANEL CPT-4 49644 Aug 18, 2015 Office Visit, Est Pt., Level 4 CPT-4 60297 Aug 18, 2015 VENIPUNCT, ROUTINE* CPT-4 94002 Aug 18, 2015 Vital Signs Date/Time: Aug 18, 2015 Temperature 98.2 F Weight 220.5 lbs Height 97 in BMI 16.47 Index Blood Pressure Diastolic 84 mmHg Blood Pressure Systolic 148 mmHg Cardiac Monitoring Heart Rate 74 bpm Results Name Result Date Reference Range Unit Abnormality Flag ROUTINE VENIPUNCTURE Summary Purpose eClinicalWorks Submission
--- NOTE | 2017-10-04 09:47 | ED Lower Extremity ---
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 DEMENTIA?), EMS History of Present Illness Time seen by provider: 09:25 Initial Comments PT ARRIVES VIA EMS FROM HOME--PT LIVES ALONE PT C/O LEFT KNEE PAIN AND SWELLING PT STATES HE WOKE UP IN THE MIDDLE OF THE NIGHT WITH SEVERE PAIN PT HAS NOT TAKEN ANYTHING FOR PAIN NO KNOWN INJURY PT HAS CHRONIC KNEE PAIN FOR YEARS--PT STATES HE "FRACTURED IT" IN THE PAST, BUT NEVER HAD SURGERY. PT STATES "THIS IS NOTHING NEW, IT'S THIS WAY ALL THE TIME" PT HAS HAD RIGHT KNEE REPLACEMENT AND WALKS WITH A CANE HAS NOT TAKEN ANYTHING FOR PAIN PT SEEMS TO BE VERY CONFUSED ABOUT HIS MEDICATIONS--STATES HE HAS "BEEN OUT OF ALL HIS MEDICINE FOR 2 WEEKS"--PT STATES "I WENT TO THE PHARMACY YESTERDAY AND THEY DIDN'T HAVE IT-HE FORGOT TO CALL IT IN" ( YESTERDAY WAS THANKSGIVING AND ALL PHARMACIES WERE CLOSED) WHEN ASKED WHAT PRESCRIPTIONS HE WAS OUT OF/ WHAT MEDICATION HE TAKES, HE PRODUCES A LIST OF HIS MEDICATIONS, AND ONLY LISTS TYLENOL, ASPIRIN AND IRON PILLS. PT DID NOT SEEM TO UNDERSTAND THAT THESE WERE OVER THE COUNTER MEDICATIONS AND HE DID NOT NEED TO HAVE A PRESCRIPTION FOR THESE, AND ASKED HIM SEVERAL TIMES IF HE TOOK ANY PRESCRIPTION MEDICATION, HE DID NOT SEEM TO COMPREHEND THIS CONCEPT, AND HE DID NOT APPEAR TO KNOW WHAT TYLENOL, ASPIRIN AND IRON PILLS WERE EVEN FOR. Allergies and Home Medications Allergies Coded Allergies: No Known Drug Allergies (Unverified , 05/09/10) Home Medications Metoprolol Succinate 50 Mg Tab.er.24h, 50 MG PO DAILY, (Reported) Past Znqmibh-Aheavr-Eyurgz Hx Patient Social History Recent Hopitalizations: No Immunizations Up To Date Tetanus Booster (TDap): Unknown PED Vaccines UTD: No Date of Pneumonia Vaccine: Dec 12, 2010 Date of Influenza Vaccine: Aug 13, 2016 Seasonal Allergies Seasonal Allergies: No Surgeries Surgeries: Orthopedic Respiratory Respiratory Disorders: Sleep Apnea Currently Using CPAP: No Currently Using BIPAP: No Cardiovascular Cardiac Disorders: Hypertension Reproductive System Hx Reproductive Disorders: No Sexually Transmitted Disease: No HIV/AIDS: No Musculoskeletal Musculoskeletal Disorders: Arthritis HEENT HEENT Disorders: Cataract Loss of Vision: Denies Hearing Impairment: Hard of Hearing Blood Transfusions Adverse Reaction to a Blood Tr: No Family Medical History Significant Family History: Heart Disease Family Medial History: Alcoholism 03 FATHER, Cancer 03 MOTHER, Family history: Arthritis 03 MOTHER, Family history: Diabetes mellitus 03 MOTHER, Headache 03 FATHER, 03 MOTHER, 09 BROTHER, 09 BROTHER, 09 SISTER, Myocardial infarction 03 FATHER, No Family History of: Abdominal aortic aneurysm Hayder's disease Aphasia Cancer of colon Cataract Chest pain Congenital heart disease Congestive heart failure Cystic fibrosis Dementia Dysphagia Family history: Allergy Family history: Alzheimer's disease Family history: Asthma Family history: Breast disease Family history: Cardiovascular disease Family history: Coronary thrombosis Family history: Gastrointestinal disease Family history: Glaucoma Family history: Hypertension Family history: Osteoporosis Family history: Thyroid disorder Hearing loss Heart disease Hereditary disease History of - anemia History of - disorder History of - respiratory disease History of drug abuse Human immunodeficiency virus (HIV) seropositivity Hypercholesterolemia Infertile Kidney disease Malignant neoplasm of lung Parkinson's disease Prostate cancer Psychotic disorder Seizure disorder Stroke Tuberculosis Visual impairment Physical Exam Vital Signs Vital Sign - Last 12Hours 10/04/17 09:59 Temp 98.6 Pulse 75 Resp 18 B/P (MAP) 124/79 Pulse Ox 95 O2 Delivery Nasal Cannula Capillary Refill : General Appearance: other (DIRTY, UNKEMPT) Cardiovascular: regular rate, rhythm Legs: bilateral leg other (BOTH LEGS WITH 2+-3+ EDEMA BILATERALLY) Knees: bilateral knee other (SIGNIFICANT SWELLING TO LEFT KNEE, C/O SEVERE PAIN WITH SLIGHTEST TOUCH TO KNEE OR SLIGHTEST MOVEMENT OF LEG. SLIGHT ERYTHEMA TO LEFT KNEE. RIGHT KNEE WITH POST OP CHANGES--S/P KNEE REPLACEMENT. ) Ankles: bilateral ankle other (2+-3+ EDEMA BILATERALLY) Feet: bilateral foot other (DISTAL MOTOR/SENSORY INTACT. PULSES DIFFICULT TO PALPATE DUE TO EDEMA, BUT ARE PRESENT AND EQUAL, FEET WARM AND CAP REFILL LESS THAN 3 SECONDS. 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 POOR MEMORY. ) Skin: normal color, warm/dry Progress/Results/Core Measures Results/Orders My Orders Orders - JANELLE KRAUS DO Knee, Left, 3 Views (10/04/17 09:38) Vital Signs/I&O Vital Sign - Last 12Hours 10/04/17 09:59 Temp 98.6 Pulse 75 Resp 18 B/P (MAP) 124/79 Pulse Ox 95 O2 Delivery Nasal Cannula Departure Impression Impression: Primary Impression: Chronic pain of left knee Additional Impressions: Left knee DJD Effusion of left knee Disposition: HOME, SELF-CARE Condition: Stable Departure-Patient Inst. Referrals: NABILA GARLAND CHAD C MD (PCP/Family) Primary Care Physician Patient Instructions: Knee Pain (DC) Add. Discharge Instructions: KEVIN WRAP TO KNEE AT ALL TIMES ELEVATE LEG MUCH POSSIBLE FOLLOW UP WITH DR. GARLAND AT [facility] 4 STATES NEXT WEEK FOR FURTHER CARE All discharge instructions reviewed with patient and/or family. Voiced understanding. Scripts Tramadol HCl (Ultram) 50 Mg Tablet 50 MG PO Q4H, #20 TAB Prov: JANELLE KRAUS DO 10/04/17 Methylprednisolone (Medrol) 4 Mg Tab.ds.pk 4 MG PO UD, #1 PKG Prov: JANELLE KRAUS DO 10/04/17 JANELLE KRAUS DO Oct 04, 2017 09:47
--- NOTE | 2017-10-04 10:46 | Diagnostic Imaging Report ---
Indication: Pain and swelling Comparison: 09/12/2015 Findings: Three views of the left knee are obtained. No acute fracture is seen. There are severe tricompartmental degenerative changes with joint space narrowing and moderate to severe hypertrophic spurring of all 3 compartments, slightly progressed from the prior study, particularly medially. There is a large joint effusion noted. Impression: Severe tricompartmental degenerative joint disease, slightly progressed from the prior study. Large joint effusion. No acute fracture is suspected. Dictated by: Dictated on workstation # [id number]
[2017-10-04] MEDS ORDERED: KETOROLAC 60 MG/2 ML VIAL IM STA (11:08)
[2017-10-04] MEDS ORDERED: TRAM-42 PO (11:15)
[2017-10-04] MEDS ORDERED: METH4TAB PO (11:15)
[2017-10-04 13:00] VITALS: BP 126/80
== END 2017-10-04 13:00 | disposition home or self-care (01) ==
LOC: EDUNIT# 09:27 → ER 09:29
DX: M17.12 Unilateral primary osteoarthritis, left knee (principal); G89.29 Other chronic pain; G47.30 Sleep apnea, unspecified; I10 Essential (primary) hypertension; M19.90 Unspecified osteoarthritis, unspecified site; Z82.49 Family history of ischemic heart disease and other diseases of the circulatory system
CPT/HCPCS: 73562; 99284

== ENCOUNTER 2018-04-14 15:04 | Inpatient (IN) | payer MEDICARE ==
[2018-04-14] VITALS (7 sets, daily range): BP systolic 143–180; BP diastolic 88–101
[~2018-04-14] VITALS: Ht 180.3 cm; Wt 92.1 kg
[~2018-04-14 15:04] MED LIST changes: +METH4TAB PO; +TRAM-42 PO
[2018-04-14 15:47] LABS: BASOPHILS % (AUTO) 0 % (0-10); EOSINOPHILS # (AUTO) 0.4 10^3/uL (0.0-0.3); EOSINOPHILS % (AUTO) 6 % (0-10); HEMATOCRIT 35 % (40-54); HEMOGLOBIN 11.4 G/DL (13.3-17.7); LYMPHOCYTES # (AUTO) 0.9 X 10^3 (1.0-4.0); LYMPHOCYTES % (AUTO) 15 % (12-44); MEAN CORPUSCULAR HEMOGLOBIN 30 PG (25-34); MEAN CORPUSCULAR HGB CONC 33 G/DL (32-36); MEAN CORPUSCULAR VOLUME 92 FL (80-99); MEAN PLATELET VOLUME 9.7 FL (7.4-10.4); MONOCYTES # (AUTO) 0.8 X 10^3 (0.0-1.0); MONOCYTES % (AUTO) 14 % (0-12); NEUTROPHILS # (AUTO) 3.9 X 10^3 (1.8-7.8); NEUTROPHILS % (AUTO) 65 % (42-75); PLATELET COUNT 282 10^3/uL (130-400); RED BLOOD COUNT 3.78 10^6/uL (4.35-5.85); RED CELL DISTRIBUTION WIDTH 14.8 % (10.0-14.5)
[2018-04-14 15:51] LABS: INR 1.1 (0.8-1.4); PROTHROMBIN TIME PATIENT 14.1 SEC (12.2-14.7)
[2018-04-14 15:59] LABS: ALANINE AMINOTRANSFERASE 7 U/L (0-55); ALBUMIN 3.3 GM/DL (3.2-4.5); ALKALINE PHOSPHATASE 73 U/L (40-136); BILIRUBIN,TOTAL 0.4 MG/DL (0.1-1.0); BUN/CREATININE RATIO 22; CALCIUM 8.6 MG/DL (8.5-10.1); CARBON DIOXIDE 26 MMOL/L (21-32); CHLORIDE 104 MMOL/L (98-107); CREATININE SERUM 1.42 MG/DL (0.60-1.30); GFR ESTIMATED 47; GLUCOSE 100 MG/DL (70-105); POTASSIUM 4.6 MMOL/L (3.6-5.0); SODIUM 138 MMOL/L (135-145); TOTAL PROTEIN 6.7 GM/DL (6.4-8.2)
--- NOTE | 2018-04-14 15:59 | Diagnostic Imaging Report ---
INDICATION: Difficulty breathing. COMPARISON: Comparison made with prior examination from 01/08/2014. FINDINGS: There is cardiomegaly. There is some venous congestion. There is a more diffuse infiltrate in the left lung and right lung base. There is no pneumothorax. There is no pleural effusion. IMPRESSION: Diffuse airspace disease in the left lung and to a lesser degree the right lung base. Cardiomegaly and some venous congestion. Dictated by: Dictated on workstation # [id number]
[2018-04-14 16:05] LABS: MYOGLOBIN SERUM 82.9 NG/ML (10.0-92.0)
[2018-04-14 17:06] LABS: BILIRUBIN,URINE NEGATIVE (NEGATIVE); CLARITY,URINE CLEAR; COLOR,URINE YELLOW; GLUCOSE, URINE (UA) NEGATIVE (NEGATIVE); KETONES,URINE NEGATIVE (NEGATIVE); LEUKOCYTE ESTERASE ,URINE 1+ (NEGATIVE); NITRITE,URINE NEGATIVE (NEGATIVE); PH,URINE 6 (5-9); PROTEIN,URINE 1+ (NEGATIVE); UROBILINOGEN,URINE NORMAL (NORMAL)
--- NOTE | 2018-04-14 17:10 | ED General ---
General Chief Complaint: Respiratory Problems Stated Complaint: GEN WEAKNESS Nursing Triage Note: PT REPORTS COUGH, SOA, AND DIAHRREA X 3 DAYS. Nursing Sepsis Screen: No Definite Risk Source of Information: Patient Exam Limitations: No Limitations History of Present Illness Date Seen by Provider: Apr 14, 2018 Time Seen by Provider: 15:05 Initial Comments This 87-year-old gentleman presents to the emergency room via EMS with multiple complaints. His primary complaint is weakness to the extent he is unable to bear weight or walk without support. He has spent the last 3 weeks in a chair. He reportedly is unable to ambulate to the bathroom. He therefore uses a cane and furniture to transfer to 5 gallon buckets next to the chair to relieve himself. EMS reported there were two 5 gallon buckets full of feces next to his chair. He also complains of cough 4 days and shortness of breath. He usually takes Lasix but reports he has been out of his medications for 2 days. He reports having some sharp chest pain yesterday that has since resolved. He is also had diarrhea for 2 days. He has not been eating well. He has some pain and bruising on the right arm and elbow, but he is uncertain of how he sustained these injuries. He has not bathed in one month and he is infested with bedbugs. He reports Dr. Lagunas and Dr. Garcia are his primary care providers. Review of chart notes that he has recently filled a prescription for Lasix. He also uses oxygen at home. EMS reported they needed to turn his oxygen up a bit to maintain saturations in the 90s. Patient used to have a home health care provider but no longer has that service. Family reports he is not a very compliant patient and seems to be "burning bridges" with family and others who try to help him. Allergies and Home Medications Allergies Coded Allergies: No Known Drug Allergies (Unverified , 05/09/10) Home Medications Methylprednisolone 4 Mg Tab.ds.pk, 4 MG PO UD Prescribed by: JANELLE KRAUS on 10/04/17 111 Metoprolol Succinate 50 Mg Tab.er.24h, 50 MG PO DAILY, (Reported) Tramadol HCl 50 Mg Tablet, 50 MG PO Q4H Prescribed by: JANELLE KRAUS on 10/04/17 1115 Patient Home Medication List Home Medication List Reviewed: Yes Review of Systems Constitutional: see HPI EENTM: no symptoms reported Respiratory: see HPI Cardiovascular: see HPI Gastrointestinal: see HPI Genitourinary: no symptoms reported Musculoskeletal: see HPI Skin: no symptoms reported Psychiatric/Neurological: See HPI Hematologic/Lymphatic: No Symptoms Reported Immunological/Allergic: no symptoms reported Past Vfxelsa-Wsdzxl-Hmjywa Hx Past Med/Social Hx: Reviewed and Corrections made Patient Social History Alcohol Use: Denies Use Recreational Drug Use: No Smoking Status: Never a Smoker Recent Foreign Travel: No Contact w/Someone Who Travel: No Recent Infectious Disease Expo: No Recent Hopitalizations: No Physical Abuse: No Sexual Abuse: No Mistreated: No Fear: No Immunizations Up To Date Tetanus Booster (TDap): Unknown PED Vaccines UTD: No Date of Pneumonia Vaccine: Dec 12, 2010 Date of Influenza Vaccine: Aug 13, 2016 Seasonal Allergies Seasonal Allergies: No Past Medical History Surgeries: Yes (RIGHT TOTAL KNEE REPLACEMENT) Orthopedic Respiratory: Yes Sleep Apnea Currently Using CPAP: No Currently Using BIPAP: No Cardiac: Yes Hypertension Neurological: No Reproductive Disorders: No Sexually Transmitted Disease: No HIV/AIDS: No Genitourinary: No Gastrointestinal: No Musculoskeletal: Yes (CHRONIC KNEE PAIN ) Arthritis Endocrine: No HEENT: Yes Cataract Loss of Vision: Denies Hearing Impairment: Hard of Hearing Cancer: No Psychosocial: No Nursing Suicide Risk Score: 0 Integumentary: No Blood Disorders: No Adverse Reaction/Blood Tranf: No Family Medical History Reviewed Nursing Family Hx Alcoholism 03 FATHER, Cancer 03 MOTHER, Family history: Arthritis 03 MOTHER, Family history: Diabetes mellitus 03 MOTHER, Headache 03 FATHER, 03 MOTHER, 09 BROTHER, 09 BROTHER, 09 SISTER, Myocardial infarction 03 FATHER, No Family History of: Abdominal aortic aneurysm [place]'s disease Aphasia Cancer of colon Cataract Chest pain Congenital heart disease Congestive heart failure Cystic fibrosis Dementia Dysphagia Family history: Allergy Family history: Alzheimer's disease Family history: Asthma Family history: Breast disease Family history: Cardiovascular disease Family history: Coronary thrombosis Family history: Gastrointestinal disease Family history: Glaucoma Family history: Hypertension Family history: Osteoporosis Family history: Thyroid disorder Hearing loss Heart disease Hereditary disease History of - anemia History of - disorder History of - respiratory disease History of drug abuse Human immunodeficiency virus (HIV) seropositivity Hypercholesterolemia Infertile Kidney disease Malignant neoplasm of lung Parkinson's disease Prostate cancer Psychotic disorder Seizure disorder Stroke Tuberculosis Visual impairment Heart Disease Physical Exam Vital Signs Vital Signs - First Documented 04/14/18 15:16 Temp 97.7 Pulse 89 Resp 20 B/P (MAP) 117/87 (97) Pulse Ox 91 O2 Delivery Nasal Cannula O2 Flow Rate 3.00 Capillary Refill : Less Than 3 Seconds General Appearance: No Apparent Distress, WD/WN, Other (disheveled, soiled, infested with bedbugs) HEENT: PERRL/EOMI, Normal ENT Inspection Neck: Normal Inspection Respiratory: No Accessory Muscle Use, No Respiratory Distress, Crackles (few crackles in the bases bilaterally) Cardiovascular: Regular Rate, Rhythm, No Edema, No Murmur Gastrointestinal: Normal Bowel Sounds, Non Tender, Soft Extremity: Normal Capillary Refill, Normal Inspection Neurologic/Psychiatric: Alert, Oriented x3, Normal Mood/Affect, housekeeping director II-XII Norm as Tested, Motor Weakness (generalized) Skin: Normal Color, Warm/Dry Focused Exam Lactate Level 04/14/18 19:30: Lactic Acid Level 0.92 Lactic Acid Level Laboratory Tests Test 04/14/18 19:30 Lactic Acid Level 0.92 MMOL/L (0.50-2.00) Progress/Results/Core Measures Suspected Sepsis Recent Fever Within 48 Hours: No Infection Criteria Present: None New/Unexplained Altered Menta: No Sepsis Screen: No Definite Risk SIRS Temperature:97.7 Pulse: 89 Respiratory Rate: 20 Laboratory Tests 04/14/18 15:12: White Blood Count 6.0 Blood Pressure 117 /87 Mean: 97 04/14/18 19:30: Lactic Acid Level 0.92 Laboratory Tests 04/14/18 15:12: Creatinine 1.42H, INR Comment 1.1, Platelet Count 282, Total Bilirubin 0.4 Results/Orders Lab Results Laboratory Tests Test 04/14/18 15:12 04/14/18 16:59 04/14/18 19:30 Range/Units White Blood Count 6.0 4.3-11.0 10^3/uL Red Blood Count 3.78 L 4.35-5.85 10^6/uL Hemoglobin 11.4 L 13.3-17.7 G/DL Hematocrit 35 L 40-54 % Mean Corpuscular Volume 92 80-99 FL Mean Corpuscular Hemoglobin 30 25-34 PG Mean Corpuscular Hemoglobin Concent 33 32-36 G/DL Red Cell Distribution Width 14.8 H 10.0-14.5 % Platelet Count 282 130-400 10^3/uL Mean Platelet Volume 9.7 7.4-10.4 FL Neutrophils (%) (Auto) 65 42-75 % Lymphocytes (%) (Auto) 15 12-44 % Monocytes (%) (Auto) 14 H 0-12 % Eosinophils (%) (Auto) 6 0-10 % Basophils (%) (Auto) 0 0-10 % Neutrophils # (Auto) 3.9 1.8-7.8 X 10^3 Lymphocytes # (Auto) 0.9 L 1.0-4.0 X 10^3 Monocytes # (Auto) 0.8 0.0-1.0 X 10^3 Eosinophils # (Auto) 0.4 H 0.0-0.3 10^3/uL Basophils # (Auto) 0.0 0.0-0.1 10^3/uL Prothrombin Time 14.1 12.2-14.7 SEC INR Comment 1.1 0.8-1.4 Activated Partial Thromboplast Time 36 H 24-35 SEC Sodium Level 138 135-145 MMOL/L Potassium Level 4.6 3.6-5.0 MMOL/L Chloride Level 104 98-107 MMOL/L Carbon Dioxide Level 26 21-32 MMOL/L Anion Gap 8 5-14 MMOL/L Blood Urea Nitrogen 31 H 7-18 MG/DL Creatinine 1.42 H 0.60-1.30 MG/DL Estimat Glomerular Filtration Rate 47 BUN/Creatinine Ratio 22 Glucose Level 100 70-105 MG/DL Calcium Level 8.6 8.5-10.1 MG/DL Magnesium Level 2.0 1.8-2.4 MG/DL Total Bilirubin 0.4 0.1-1.0 MG/DL Aspartate Amino Transf (AST/SGOT) 11 5-34 U/L Alanine Aminotransferase (ALT/SGPT) 7 0-55 U/L Alkaline Phosphatase 73 40-136 U/L Myoglobin 82.9 10.0-92.0 NG/ML Troponin I < 0.30 <0.30 NG/ML C-Reactive Protein High Sensitivity 4.07 H 0.00-0.50 MG/DL B-Type Natriuretic Peptide 403.6 H <100.0 PG/ML Total Protein 6.7 6.4-8.2 GM/DL Albumin 3.3 3.2-4.5 GM/DL Urine Color YELLOW Urine Clarity CLEAR Urine pH 6 5-9 Urine Specific [place] 1.015 L 1.016-1.022 Urine Protein 1+ H NEGATIVE Urine Glucose (UA) NEGATIVE NEGATIVE Urine Ketones NEGATIVE NEGATIVE Urine Nitrite NEGATIVE NEGATIVE Urine Bilirubin NEGATIVE NEGATIVE Urine Urobilinogen NORMAL NORMAL MG/DL Urine Leukocyte Esterase 1+ H NEGATIVE Urine RBC (Auto) 3+ H NEGATIVE Urine RBC 5-10 H /HPF Urine WBC 2-5 /HPF Urine Squamous Epithelial Cells 0-2 /HPF Urine Crystals NONE /LPF Urine Bacteria NEGATIVE /HPF Urine Casts NONE /LPF Urine Mucus NEGATIVE /LPF Urine Culture Indicated NO Lactic Acid Level 0.92 0.50-2.00 MMOL/L My Orders Orders - MANA LOPEZ MD Cbc With Automated Diff (04/14/18 15:21) Magnesium (04/14/18 15:21) Chest 1 View, Ap/Pa Only (04/14/18 15:21) Ekg Tracing (04/14/18 15:21) Cardiac Profile 1 (04/14/18 15:21) Comprehensive Metabolic Panel (04/14/18 15:21) Myoglobin Serum (04/14/18 15:21) Protime With Inr (04/14/18 15:21) Partial Thromboplastin Time (04/14/18 15:21) O2 (04/14/18 15:21) Monitor-Rhythm Ecg Trace Only (04/14/18 15:21) Lipid Panel (04/15/18 06:00) Saline Lock/Iv-Start (04/14/18 15:21) BNP (04/14/18 15:53) Hs C Reactive Protein (04/14/18 15:53) Ua Culture If Indicated (04/14/18 16:51) Blood Culture (04/14/18 19:02) Lactic Acid Analyzer (04/14/18 19:02) Aspirin Tablet (Aspirin Tablet) (04/14/18 19:30) Azithromycin Injection (Zithromax Inject (04/14/18 19:45) Ceftriaxone Injection (Rocephin Injectio (04/14/18 19:45) Medications Given in ED Current Medications Medications Dose Ordered Sig/Antonia Route Start Time Stop Time Status Last Admin Dose Admin Ceftriaxone Sodium 1000 mg/ Sodium Chloride 50 ml @ 100 mls/hr ONCE ONCE IV 04/14/18 19:45 04/14/18 20:14 DC 04/14/18 20:08 100 MLS/HR Vital Signs/I&O 04/14/18 04/14/18 15:16 21:03 Temp 97.7 96.9 Pulse 89 84 Resp 20 20 B/P (MAP) 117/87 (97) 146/90 (108) Pulse Ox 91 98 O2 Delivery Nasal Cannula Nasal Cannula O2 Flow Rate 3.00 6.00 Capillary Refill : Less Than 3 Seconds Blood Pressure Mean: 97 Progress Note : Progress Note Patient was thoroughly assessed. He was stable while in the ER. He denied any chest pain since his arrival. Because patient lives alone and he has demonstrated inability to care for self safely, admission was felt necessary. Patient also had increased hypoxia, infiltrate and/or edema on chest x-ray, elevated BNP, and elevated CRP. Is unclear to what extent his pulmonary symptoms and x-ray findings are due to heart failure versus pneumonia. Patient was treated presumptively for pneumonia. Blood culture and lactic acid was obtained prior to administration of antibiotics. Lasix 20 mg was ordered to be given by IV route after arrival to the floor. ECG Initial ECG Impression Date: Apr 14, 2018 Initial ECG Impression Time: 15:08 Initial ECG Rate: 82 Initial ECG Rhythm: Normal Sinus Initial ECG Intervals: Normal Initial ECG Impression: Normal Comment Sinus rhythm with no ST elevation or depression. LVH with secondary repolarization abnormality. No abnormal intervals. Diagnostic Imaging Diagonstic Imaging: Xray Plain Films/CT/US/NM/MRI: chest Comments Chest x-ray viewed by me and report reviewed. See report below: NAME: HOLDEN MORA [facility] REC#: [id number] PT STATUS: REG ER : 1930 PHYSICIAN: MANA LOPEZ MD ADMIT DATE: 04/14/18/ER Signed Date of Exam: 04/14/18 CHEST 1 VIEW, AP/PA ONLY INDICATION: Difficulty breathing. COMPARISON: Comparison made with prior examination from 01/08/2014. FINDINGS: There is cardiomegaly. There is some venous congestion. There is a more diffuse infiltrate in the left lung and right lung base. There is no pneumothorax. There is no pleural effusion. IMPRESSION: Diffuse airspace disease in the left lung and to a lesser degree the right lung base. Cardiomegaly and some venous congestion. Dictated by: Dictated on workstation # [id number] Dict: 04/14/18 1555 Trans: 04/14/18 1601 Interpreted by: NAOMY JIMÉNEZ MD Electronically signed by: NAOMY JIMÉNEZ MD 04/14/18 1601 Departure Communication (Admissions) Time/Spoke to Admitting Phy: 19:11 Dr. Elver Garcia Time/Spoke to Consulting Phy: 19:20 Dr. Shanice Rios Primary Impression: Chest pain Qualified Codes: R07.9 - Chest pain, unspecified Additional Impressions: Generalized weakness Debility bedbug infestation Diarrhea Qualified Codes: R19.7 - Diarrhea, unspecified Pulmonary infiltrate Hypoxia Disposition: ADMITTED INPATIENT Condition: Stable Admissions Decision to Admit Reason: Admit from ER (General) Decision to Admit/Date: Apr 14, 2018 Time/Decision to Admit Time: 15:15 Departure-Patient Inst. Referrals: TONIO GARCIA MD (PCP) Primary Care Physician ELVER GARCIA MD (Family) Primary Care Physician MANA LOPEZ MD Apr 14, 2018 17:10
[2018-04-14 17:22] LABS: BACTERIA,URINE NEGATIVE /HPF; SQUAMOUS EPITHELIAL CELL,UR 0-2 /HPF
[2018-04-14] MEDS ORDERED: ASPIRIN 325 MG (5 GR) TABLET PO ONE (19:30)
[2018-04-14] MEDS ORDERED: AZITHROMYCIN INJECTION 500 MG in NS (IVPB) 250 ML IV ONE (19:45)
[2018-04-14] MEDS ORDERED: cefTRIAXone INJECTION 1,000 MG in NS (IVPB) 50 ML IV ONE (19:45)
[2018-04-14 22:50] LABS: CREATINE KINASE 59 U/L (30-200)
[2018-04-14] MEDS ORDERED: FUROSEMIDE 40 MG/4 ML INJ (LASIX) IV ONE (23:00)
[2018-04-14] MEDS ORDERED: NS (IVPB) 250 ML ONE (23:16)
[2018-04-14] MEDS ORDERED: AZITHROMYCIN 500 MG (ZITHROMAX) VIAL ONE (23:17)
[2018-04-15] VITALS (9 sets, daily range): BP systolic 122–160; BP diastolic 60–91
[2018-04-15] MEDS ORDERED: RT-ALBUTEROL/IPRATROPIUM 3 ML (DUONEB) VIAL INH PRN
[2018-04-15 06:51] LABS: BASOPHILS % (AUTO) 0 % (0-10); EOSINOPHILS # (AUTO) 0.6 10^3/uL (0.0-0.3); EOSINOPHILS % (AUTO) 8 % (0-10); HEMATOCRIT 33 % (40-54); HEMOGLOBIN 10.6 G/DL (13.3-17.7); LYMPHOCYTES # (AUTO) 0.9 X 10^3 (1.0-4.0); LYMPHOCYTES % (AUTO) 11 % (12-44); MEAN CORPUSCULAR HEMOGLOBIN 29 PG (25-34); MEAN CORPUSCULAR HGB CONC 33 G/DL (32-36); MEAN CORPUSCULAR VOLUME 91 FL (80-99); MEAN PLATELET VOLUME 8.8 FL (7.4-10.4); MONOCYTES # (AUTO) 0.9 X 10^3 (0.0-1.0); MONOCYTES % (AUTO) 12 % (0-12); NEUTROPHILS # (AUTO) 5.1 X 10^3 (1.8-7.8); NEUTROPHILS % (AUTO) 69 % (42-75); PLATELET COUNT 249 10^3/uL (130-400); RED CELL DISTRIBUTION WIDTH 14.6 % (10.0-14.5); WHITE BLOOD COUNT 7.5 10^3/uL (4.3-11.0)
[2018-04-15] MEDS: RT-ALBUTEROL/IPRATROPIUM 3 ML (DUONEB) VIAL INH SCH ×4 (07:12→19:48)
[2018-04-15 07:15] LABS: BILIRUBIN,TOTAL 0.4 MG/DL (0.1-1.0); CALCIUM 8.3 MG/DL (8.5-10.1); CREATININE SERUM 1.3 MG/DL (0.60-1.30); POTASSIUM 4.4 MMOL/L (3.6-5.0); TOTAL PROTEIN 6.1 GM/DL (6.4-8.2)
--- NOTE | 2018-04-15 07:46 | Diagnostic Imaging Report ---
INDICATION: Chest pain, hypoxia. COMPARISON: 04/14/2018. FINDINGS: Single view of the chest demonstrates unchanged cardiac enlargement with bilateral interstitial infiltrates. This could represent acute on chronic process. There is no pneumothorax or large effusion. Osseous structures are stable. IMPRESSION: Unchanged cardiac enlargement with bilateral interstitial infiltrates. If findings do not resolve, consider high-resolution CT chest. Dictated by: Dictated on workstation # [id number]
--- NOTE | 2018-04-15 07:57 | Pulmonary Consultation ---
History of Present Illness History of Present Illness Date of Consultation 04/15/18 07:53 Time Seen by Provider: 10:05 Date of Admission History of Present Illness 87yo with hx of severe oxygen dependent COPD, poor medical compliance, CHF, presented via EMS secondary to weakness and debility. Pt was found to have bed bugs in ED. PT has not been taking home meds. He has been going to the bathroom in a 5 gallon bucket. Pt has very poor living conditions. Pt has previously refused ECF placement. Allergies and Home Medications Allergies Coded Allergies: No Known Drug Allergies (Unverified , 05/09/10) Home Medications Aspirin 81 Mg Tablet.dr, 81 MG PO DAILY, (Reported) Ferrous Sulfate 325 Mg Tablet, 325 MG PO BID, (Reported) LAST FILLED #60 02-25-18 Furosemide 20 Mg Tablet, 20 MG PO DAILY, (Reported) Meloxicam 7.5 Mg Tablet, 7.5 MG PO DAILY, (Reported) Past Ezjvobv-Gkgfch-Kzhseb Hx Past Med/Social Hx: Reviewed and Corrections made Patient Social History Alcohol Use: Denies Use Recreational Drug Use: No Smoking Status: Never a Smoker Recent Foreign Travel: No Contact w/Someone Who Travel: No Recent Infectious Disease Expo: No Recent Hopitalizations: No Physical Abuse: No Sexual Abuse: No Mistreated: No Fear: No Immunizations Up To Date Tetanus Booster (TDap): Unknown PED Vaccines UTD: No Date of Pneumonia Vaccine: Dec 12, 2010 Date of Influenza Vaccine: Aug 13, 2016 Seasonal Allergies Seasonal Allergies: No Past Medical History Surgeries: Yes Orthopedic Respiratory: No Sleep Apnea Currently Using CPAP: No Currently Using BIPAP: No Cardiac: Yes Hypertension Neurological: No Reproductive Disorders: No Sexually Transmitted Disease: No HIV/AIDS: No Genitourinary: No Gastrointestinal: No Musculoskeletal: No Arthritis Endocrine: No HEENT: No Cataract Loss of Vision: Denies Hearing Impairment: Hard of Hearing Cancer: No Psychosocial: No Nursing Suicide Risk Score: 0 Integumentary: No Blood Disorders: No Adverse Reaction/Blood Tranf: No Family Medical History Reviewed Nursing Family Hx Alcoholism 03 FATHER, Cancer 03 MOTHER, Family history: Arthritis 03 MOTHER, Family history: Diabetes mellitus 03 MOTHER, Headache 03 FATHER, 03 MOTHER, 09 BROTHER, 09 BROTHER, 09 SISTER, Myocardial infarction 03 FATHER, No Family History of: Abdominal aortic aneurysm [place]'s disease Aphasia Cancer of colon Cataract Chest pain Congenital heart disease Congestive heart failure Cystic fibrosis Dementia Dysphagia Family history: Allergy Family history: Alzheimer's disease Family history: Asthma Family history: Breast disease Family history: Cardiovascular disease Family history: Coronary thrombosis Family history: Gastrointestinal disease Family history: Glaucoma Family history: Hypertension Family history: Osteoporosis Family history: Thyroid disorder Hearing loss Heart disease Hereditary disease History of - anemia History of - disorder History of - respiratory disease History of drug abuse Human immunodeficiency virus (HIV) seropositivity Hypercholesterolemia Infertile Kidney disease Malignant neoplasm of lung Parkinson's disease Prostate cancer Psychotic disorder Seizure disorder Stroke Tuberculosis Visual impairment Heart Disease Review of Systems Time Seen by Provider: 08:06 Constitutional: Sweats, Weakness, Malaise; No: Fever, Chills, Other Eyes: No: Pain, Vision change, Conjunctivae inflammation, Eyelid inflammation, Other, Redness ENT: Nose discharge, Nose congestion; No: Ear pain, Ear discharge, Nose pain, Mouth pain, Mouth swelling, Throat pain, Throat swelling, Other Respiratory: Cough, Dry, Shortness of breath, SOB with excertion, Wheezing; No : Hemoptysis Cardiovascular: Orthopnea, Paroxysmal Noc. Dyspnea; No: Chest Pain, Palpitations, Edema, Lt Headedness, Other Gastrointestinal: No: Nausea, Vomiting, Abdominal Pain, Diarrhea, Constipation , Melena, Hematochezia, Other Neurological: Confusion Exam Exam Vital Signs Date Time Temp Pulse Resp B/P (MAP) Pulse Ox O2 Delivery O2 Flow Rate FiO2 04/15/18 07:12 96 Nasal Cannula 3.00 04/15/18 04:00 97.4 70 19 129/60 (83) 96 Nasal Cannula 3.00 04/15/18 02:06 69 128/74 (92) 04/15/18 01:06 89 123/77 (92) 04/15/18 01:00 95 04/15/18 00:06 52 129/72 (91) 04/15/18 00:00 98.2 87 19 160/91 (114) 93 Nasal Cannula 3.00 04/14/18 23:27 98 Nasal Cannula 3.00 04/14/18 23:27 68 98 32 04/14/18 23:01 75 04/14/18 23:00 77 180/101 (127) 04/14/18 22:22 68 143/89 (107) 98 04/14/18 22:15 71 149/92 (111) 99 04/14/18 22:06 72 149/92 (111) 99 04/14/18 21:49 70 156/88 (110) 100 Nasal Cannula 3.00 04/14/18 21:40 96.9 84 20 146/90 (108) 98 Nasal Cannula 6.00 04/14/18 21:03 95 Nasal Cannula 3.00 04/14/18 21:03 96.9 84 20 146/90 (108) 98 Nasal Cannula 6.00 04/14/18 15:16 97.7 89 20 117/87 (97) 91 Nasal Cannula 3.00 I & O 04/15/18 07:00 Intake Total 0 ml Output Total 1200 ml Balance -1200 ml General Appearance: WD/WN, Anxious, Chronically ill, Mild Distress, Other ( disheveled, soiled, infested with bedbugs) HEENT: PERRL/EOMI, Normal ENT Inspection Neck: Normal Inspection Respiratory: Accessory Muscle Use, Crackles (few crackles in the bases bilaterally), Decreased Breath Sounds Cardiovascular: Regular Rate, Rhythm, No Edema, No Murmur Capillary Refill: Less Than 3 Seconds Gastrointestinal: normal bowel sounds, non tender, soft Extremity: Normal Capillary Refill, Normal Inspection Neurologic/Psychiatric: Alert, Oriented x3, Normal Mood/Affect, 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
[2018-04-15] MEDS ORDERED: BUMETANIDE 1 MG/4 ML (BUMEX) VIAL IV NR (08:00)
--- NOTE | 2018-04-15 08:38 | History & Physical ---
History of Present Illness History of Present Illness Reason for visit/HPI 87-year-old male admitted for observation and investigation into social situation as patient has progress to physical weakness and debility. He does have a worker at comes in from 5 p.m. to 9 p.m. most days a week. At least this was my understanding as of about a month ago. Patient does have a son and daughter the check on him occasionally. Patient's son called my office yesterday though to report that the patient has not been taking his medications nor does he have some of his medications. Of further significance patient has been going to the bathroom on 5 gallon buckets and he reports he been sitting in the same chair for multiple days. Also patient has history of having bedbugs it is unclear if he currently has them. Patient previously refused fci placement but this will be discussed during this admission. Patient is on continuous oxygen for his history of COPD and likely has congestive heart failure with resulting pulmonary edema. Dr. Simms has been consulted and has started him on a dose of IV Bumex. Furthermore patient has been scheduled to see cardiology and pulmonology but to my knowledge has not seen either specialist. Patient also has a history of hypertension. Date of Admission Apr 14, 2018 at 20:21 Date Seen by Provider: Apr 15, 2018 Time Seen by Provider: 08:37 I consulted on this patient on 04/15/18 08:33 Attending Physician Elver Garcia MD Admitting Physician Elver Garcia MD Consult Dr. Simms, [facility] Allergies and Home Medications Allergies Coded Allergies: No Known Drug Allergies (Unverified , 05/09/10) Home Medications Aspirin 81 Mg Tablet.dr, 81 MG PO DAILY, (Reported) Ferrous Sulfate 325 Mg Tablet, 325 MG PO BID, (Reported) LAST FILLED #60 02-25-18 Furosemide 20 Mg Tablet, 20 MG PO DAILY, (Reported) Meloxicam 7.5 Mg Tablet, 7.5 MG PO DAILY, (Reported) Patient Home Medication List Home Medication List Reviewed: Yes Past Hjoqsxq-Egwbtb-Bkqphn Hx Patient Social History Alcohol Use: Denies Use Recreational Drug Use: No Smoking Status: Never a Smoker Physical Abuse Screen: No Sexual Abuse: No Recent Foreign Travel: No Contact w/other who traveled: No Recent Hopitalizations: No Recent Infectious Disease Expo: No Immunizations Up To Date Tetanus Booster (TDap): Unknown Pediatric: No Date of Pneumonia Vaccine: Dec 12, 2010 Date of Influenza Vaccine: Aug 13, 2016 Seasonal Allergies Seasonal Allergies: No Surgeries Yes Orthopedic Respiratory No Currently Using CPAP: No Currently Using BIPAP: No Cardiovascular Yes Hypertension Neurological No Reproductive System Hx Reproductive Disorders: No Sexually Transmitted Disease: No HIV/AIDS: No Genitourinary No Gastrointestinal No Musculoskeletal No Arthritis Endocrine History of Endocrine Disorders: No HEENT History of HEENT Disorders: No HEENT Disorders: Cataract Loss of Vision: Denies Hearing Impairment: Hard of Hearing Cancer No Psychosocial History of Psychiatric Problem: No Integumentary History of Skin or Integumenta: No Blood Transfusions History of Blood Disorders: No Adverse Reaction to a Blood Tr: No Family Medical History Significant Family History: Heart Disease Family Hx: Alcoholism 03 FATHER, Cancer 03 MOTHER, Family history: Arthritis 03 MOTHER, Family history: Diabetes mellitus 03 MOTHER, Headache 03 FATHER, 03 MOTHER, 09 BROTHER, 09 BROTHER, 09 SISTER, Myocardial infarction 03 FATHER, No Family History of: Abdominal aortic aneurysm Hayder's disease Aphasia Cancer of colon Cataract Chest pain Congenital heart disease Congestive heart failure Cystic fibrosis Dementia Dysphagia Family history: Allergy Family history: Alzheimer's disease Family history: Asthma Family history: Breast disease Family history: Cardiovascular disease Family history: Coronary thrombosis Family history: Gastrointestinal disease Family history: Glaucoma Family history: Hypertension Family history: Osteoporosis Family history: Thyroid disorder Hearing loss Heart disease Hereditary disease History of - anemia History of - disorder History of - respiratory disease History of drug abuse Human immunodeficiency virus (HIV) seropositivity Hypercholesterolemia Infertile Kidney disease Malignant neoplasm of lung Parkinson's disease Prostate cancer Psychotic disorder Seizure disorder Stroke Tuberculosis Visual impairment Physical Exam Vital Signs Vital Signs - First Documented 04/14/18 04/14/18 15:16 23:27 Temp 97.7 Pulse 89 Resp 20 B/P (MAP) 117/87 (97) Pulse Ox 91 O2 Delivery Nasal Cannula O2 Flow Rate 3.00 FiO2 32 Capillary Refill : Less Than 3 Seconds General Appearance: No Apparent Distress, WD/WN HEENT: PERRL/EOMI Neck: Non Tender, Supple Respiratory: Chest Non Tender, Lungs Clear, No Accessory Muscle Use, Decreased Breath Sounds (bases) Cardiovascular: Regular Rate, Rhythm, No Edema Gastrointestinal: Normal Bowel Sounds, Soft Rectal: Deferred Back: No CVA Tenderness Extremity: Pedal Edema (trace) Neurologic/Psychiatric: Alert, Oriented x3 Skin: Warm/Dry Assessment/Plan Assessment/Plan Admission Dx Debility Admission Status: Inpatient Order (span 2 midnights) Reason for Inpatient Admission: patient present with chest pain he has a cardiac and pulmonary history he is progressively declining in poor living conditions. Assessment and Plan 87 yo M (R07.89) Other chest pain- monitor, does not appear to be cardiac- Dr. Prasad consulted (N18.3) Chronic kidney disease, stage 3 (moderate) - hydration- monitor kidney function- avoid nephrotoxic agents. (M17.12) Unilateral primary osteoarthritis, left knee - PT (Z59.1) Inadequate housing - working on placement (B88.8) Other specified infestations- bedbugs- pt is on isolation. (R54) Age-related physical debility- PT/OT Hypoxia - likely related to the infiltrates that are likely to be pulmonary edema- Pulm consulted bilateral pulmonary infiltrates- covering for pneumonia- afebrile, WBC normal- on azithromycin, rocephin. pulmonary edema- diuretic Dispo: consulting cardiology, pulmonology in part to establish care. Patient was a patient of [facility] previously but he and his family were not happy with his care-- but self care and lack of family assistance have not been productive in his medical/personal health. Consulting case management for placement as he can not live alone any longer. May be difficult to find placement. Clinical Quality Measures DVT/VTE Risk/Contraindication: Risk Factor Score Per Nursin RFS Level Per Nursing on Admit: 4+=Very High ELVER GARCIA MD Apr 15, 2018 08:38
--- NOTE | 2018-04-15 09:49 | Physical Therapy Evaluation ---
PT Evaluation-General Medical Diagnosis Admission Date Apr 14, 2018 at 20:21 Medical Diagnosis: CP/debility/hypoxia Onset Date: Apr 14, 2018 Therapy Diagnosis Therapy Diagnosis: generalized weakness/debility Height/Weight Height (Feet): 5 Height (Inches): 11.00 Weight (Pounds): 203 Weight (Ounces): 2.0 Precautions Precautions/Isolations: Contact Isolation, Fall Prevention Weight Bear Status Right Lower Extremity: Right Full Weight Bearing Left Lower Extremity: Left Full Weight Bearing Referral Physician: Elver Quintero Reason for Referral: Evaluation/Treatment Medical History Pertinent Medical History: HTN Additional Medical History TKR Current History EMS due to inability to care for self/weakness/patient has been transferring to a 5 gallon bucket for toilet Reviewed History: Yes Social History Home: Single Level Current Living Status: Alone Prior/Core FIM Prior Level of Function Functional [place] Measure 0=Not Assessed/NA 4=Minimal Assistance 1=Total Assistance 5=Supervision or Setup 2=Maximal Assistance 6=Modified [place] 3=Moderate Assistance 7=Complete [place] Bed Mobility: 5 Transfers (B,C,W/C) (FIM): 5 Gait: 0 (per patient report he has not ambulated for several weeks due to weakness) PT Evaluation-Current Subjective Patient reluctantly agrees to PT. Pain Numeric Pain Scale: 10-Worst Possible Pain Location: Left Location Body Site: Knee Pain Description: Chronic Objective Patient Orientation: Person, Time, Situation Problem Solving: Fair Attachments: Oxygen ROM/Strength ROM Lower Extremities bilateral LE WNL Strength Lower Extremities 4-/5 grossly bilaterally Integumentary/Posture Integumentary refer to nursing notes Bowel Incontinence: Yes Bladder Incontinence: Yes Posture WFL Neuromuscular (Tone, Coordination, Reflexes) grossly intact with all Sensory Vision: Wears Glasses Hearing: Impaired Sensation Right Lower Extremit: Intact Sensation Left Lower Extremity: Intact Transfers Functional [place] Measure 0=Not Assessed/NA 4=Minimal Assistance 1=Total Assistance 5=Supervision or Setup 2=Maximal Assistance 6=Modified [place] 3=Moderate Assistance 7=Complete [place] Transfers (B, C, W/C) (FIM): 4 Scootin Rollin Supine to/from Sit: 5 Sit to/from Stand: 4 Patient demands PT assistance, however, is able to perform bed mobility SBA Gait Mode of Locomotion: Walk Anticipated Mode of Locomotion: Walk Gait (FIM): 1 Distance (FIM): 1=up to 49 ft Distance: 5 steps Gait Level of Assist: 5 Gait Persons Needed: 1 Gait Assistive Device: FWW Comments/Gait Description would side step only/functional Balance Sitting Static: Normal Sitting Dynamic: Normal Standing Static: Fair Standing Dynamic: Fair Assessment/Needs 87 y.o. male, will benefit from short term skilled PT to address functional strength and mobility to improve current LOF. Patient appears to self limit and demonstrates good strength with mobility. Rehab Potential: Fair PT Short Term Goals Short Term Goals Time Frame: Apr 18, 2018 Transfers (B,C,W/C) (FIM): 5 Gait (FIM): 1 Distance (FIM): 1=up to 49 ft Gait Distance Comment: 25' Gait Level of Assist: 5 Gait Assistive Device: FWW PT Plan Problem List Problem List: Activity Tolerance, Safety, Balance, Gait, Transfer Treatment/Plan Treatment Plan: Continue Plan of Care Treatment Plan: Bed Mobility, Education, Functional Activity Reinaldo, Functional Strength, Gait, Safety, Therapeutic Exercise, Transfers Treatment Duration: Apr 18, 2018 Frequency: 4 times per week Estimated Hrs Per Day: .25 hour per day Patient and/or Family Agrees t: Yes Safety Risks/Education Patient Education: Gait Training Teaching Recipient: Patient Response to Teaching: Reinforcement Needed Discharge Recommendations Therapy D/C Recommendations: Correction Placement, Senior Care (TCU/NH) Time/GCodes Time In: 901 Time Out: 919 Total Billed Treatment Time: 18 Total Billed Treatment 1 visit EVModC 18 min G Codes Necessary: RALPH Cope PT Apr 15, 2018 09:49
[2018-04-15] MEDS: ASPIRIN E.C. 81 MG (ECOTRIN) TAB PO SCH (09:58)
[2018-04-15] MEDS: AZITHROMYCIN 250 MG TAB (ZITHROMAX) PO SCH (09:58)
[2018-04-15] MEDS ORDERED: ASPI-983 PO (10:02)
[2018-04-15] MEDS ORDERED: FERR325T24 PO (10:02)
[2018-04-15] MEDS ORDERED: MELO7.5T46 PO (10:03)
[2018-04-15] MEDS ORDERED: FURO20TA4 PO (10:03)
[2018-04-15 12:09] LABS: ABG BASE EXCESS 3.3 MMOL/L (-2.5-2.5); ABG OXYGEN SATURATION 90 % (94-100); ABG PCO2 42 MMHG (35-45); ABG PH 7.43 (7.37-7.43); ABG PO2 57 MMHG (79-93); ABG TCO2 28.7 MMOL/L (21.0-31.0)
[2018-04-15 12:10] LABS: ALLENS TEST YES-POS; INSPIRED O2 3; PATIENT TEMP 97.9; VENTILATOR NO
--- NOTE | 2018-04-15 16:36 | Consultation-Cardiology ---
HPI-Cardiology Cardiology Consultation Date of Consultation 04/15/18 Date of Admission Time Seen by Provider: 16:31 Indication: Shortness of breath, generalized weakness HPI 87 years old gentleman with history of COPD and hypertension, has been using oxygen at home, becoming more confused and lethargic and weak. Was admitted to the hospital with generalized weakness and change in mental status. Patient is laying down in bed. Denied any chest pain, reporting shortness of breath on exertion. He had elevated BNP. Echocardiogram showed left ventricular hypertrophy with normal systolic function and early diastolic dysfunction. Normal pulmonary artery pressure. He was diagnosed with pneumonia and receiving antibiotics. Home Medications & Allergies Allergies: Coded Allergies: No Known Drug Allergies (Unverified , 05/09/10) Home Medication List Reviewed: Yes JSW-[id number]-Bbdovc Hx Patient Social History Marital Status: single Alcohol Use: Denies Use Recreational Drug Use: No Smoking Status: Never a Smoker Recent Foreign Travel: No Recent Infectious Disease Expo: No Recent Hopitalizations: No Physical Abuse Screen: No Sexual Abuse: No Immunizations Up To Date Tetanus Booster (TDap): Unknown Date of Pneumonia Vaccine: Dec 12, 2010 Date of Influenza Vaccine: Aug 13, 2016 Past Medical History Medical history as discussed Family Medical History Significant Family History: Heart Disease Family History: Alcoholism 03 FATHER, Cancer 03 MOTHER, Family history: Arthritis 03 MOTHER, Family history: Diabetes mellitus 03 MOTHER, Headache 03 FATHER, 03 MOTHER, 09 BROTHER, 09 BROTHER, 09 SISTER, Myocardial infarction 03 FATHER, No Family History of: Abdominal aortic aneurysm Bohannon's disease Aphasia Cancer of colon Cataract Chest pain Congenital heart disease Congestive heart failure Cystic fibrosis Dementia Dysphagia Family history: Allergy Family history: Alzheimer's disease Family history: Asthma Family history: Breast disease Family history: Cardiovascular disease Family history: Coronary thrombosis Family history: Gastrointestinal disease Family history: Glaucoma Family history: Hypertension Family history: Osteoporosis Family history: Thyroid disorder Hearing loss Heart disease Hereditary disease History of - anemia History of - disorder History of - respiratory disease History of drug abuse Human immunodeficiency virus (HIV) seropositivity Hypercholesterolemia Infertile Kidney disease Malignant neoplasm of lung Parkinson's disease Prostate cancer Psychotic disorder Seizure disorder Stroke Tuberculosis Visual impairment Constitutional: see HPI, malaise, weakness EENTM: see HPI Respiratory: see HPI, cough, dyspnea on exertion, phlegm, short of breath Cardiovascular: see HPI, chest pain; No edema, No Hx of Intervention, No palpitations, No syncope, No vascular heart diseas, No other Gastrointestinal: no symptoms reported, see HPI Genitourinary: see HPI Musculoskeletal: see HPI, joint pain, muscle stiffness, muscle cramps, muscle weakness Skin: no symptoms reported, see HPI Psychiatric/Neurological: No Symptoms Reported, See HPI Reviewed Test Results Reviewed Test Results Lab Laboratory Tests Test 04/14/18 16:59 04/14/18 19:30 04/14/18 22:25 04/15/18 06:34 Range/Units Urine Color YELLOW Urine Clarity CLEAR Urine pH 6 5-9 Urine Specific [place] 1.015 L 1.016-1.022 Urine Protein 1+ H NEGATIVE Urine Glucose (UA) NEGATIVE NEGATIVE Urine Ketones NEGATIVE NEGATIVE Urine Nitrite NEGATIVE NEGATIVE Urine Bilirubin NEGATIVE NEGATIVE Urine Urobilinogen NORMAL NORMAL MG/DL Urine Leukocyte Esterase 1+ H NEGATIVE Urine RBC (Auto) 3+ H NEGATIVE Urine RBC 5-10 H /HPF Urine WBC 2-5 /HPF Urine Squamous Epithelial Cells 0-2 /HPF Urine Crystals NONE /LPF Urine Bacteria NEGATIVE /HPF Urine Casts NONE /LPF Urine Mucus NEGATIVE /LPF Urine Culture Indicated NO Lactic Acid Level 0.92 0.50-2.00 MMOL/L Total Creatine Kinase 59 30-200 U/L Troponin I < 0.30 <0.30 NG/ML White Blood Count 7.5 4.3-11.0 10^3/uL Red Blood Count 3.60 L 4.35-5.85 10^6/uL Hemoglobin 10.6 L 13.3-17.7 G/DL Hematocrit 33 L 40-54 % Mean Corpuscular Volume 91 80-99 FL Mean Corpuscular Hemoglobin 29 25-34 PG Mean Corpuscular Hemoglobin Concent 33 32-36 G/DL Red Cell Distribution Width 14.6 H 10.0-14.5 % Platelet Count 249 130-400 10^3/uL Mean Platelet Volume 8.8 7.4-10.4 FL Neutrophils (%) (Auto) 69 42-75 % Lymphocytes (%) (Auto) 11 L 12-44 % Monocytes (%) (Auto) 12 0-12 % Eosinophils (%) (Auto) 8 0-10 % Basophils (%) (Auto) 0 0-10 % Neutrophils # (Auto) 5.1 1.8-7.8 X 10^3 Lymphocytes # (Auto) 0.9 L 1.0-4.0 X 10^3 Monocytes # (Auto) 0.9 0.0-1.0 X 10^3 Eosinophils # (Auto) 0.6 H 0.0-0.3 10^3/uL Basophils # (Auto) 0.0 0.0-0.1 10^3/uL Sodium Level 137 135-145 MMOL/L Potassium Level 4.4 3.6-5.0 MMOL/L Chloride Level 104 98-107 MMOL/L Carbon Dioxide Level 23 21-32 MMOL/L Anion Gap 10 5-14 MMOL/L Blood Urea Nitrogen 33 H 7-18 MG/DL Creatinine 1.30 0.60-1.30 MG/DL Estimat Glomerular Filtration Rate 52 BUN/Creatinine Ratio 25 Glucose Level 97 70-105 MG/DL Calcium Level 8.3 L 8.5-10.1 MG/DL Total Bilirubin 0.4 0.1-1.0 MG/DL Aspartate Amino Transf (AST/SGOT) 12 5-34 U/L Alanine Aminotransferase (ALT/SGPT) 6 0-55 U/L Alkaline Phosphatase 63 40-136 U/L C-Reactive Protein High Sensitivity 4.33 H 0.00-0.50 MG/DL B-Type Natriuretic Peptide 428.4 H <100.0 PG/ML Total Protein 6.1 L 6.4-8.2 GM/DL Albumin 3.0 L 3.2-4.5 GM/DL Triglycerides Level 50 <150 MG/DL Cholesterol Level 107 < 200 MG/DL LDL Cholesterol Direct 54 1-129 MG/DL VLDL Cholesterol 10 5-40 MG/DL HDL Cholesterol 40 40-60 MG/DL Test 04/15/18 12:00 Range/Units Blood Gas Puncture Site R RAD Blood Gas Patient Temperature 97.9 Arterial Blood pH 7.43 7.37-7.43 Arterial Blood Partial Pressure CO2 42 35-45 MMHG Arterial Blood Partial Pressure O2 57 L 79-93 MMHG Arterial Blood HCO3 27 23-27 MMOL/L Arterial Blood Total CO2 28.7 21.0-31.0 MMOL/L Arterial Blood Oxygen Saturation 90 L 94-100 % Arterial Blood Base Excess 3.3 H -2.5-2.5 MMOL/L Yoan Test YES-POS Blood Gas Ventilator Setting NO Blood Gas Inspired Oxygen 3 Physical Exam Vital Signs Vital Signs - First Documented 04/14/18 04/14/18 15:16 23:27 Temp 97.7 Pulse 89 Resp 20 B/P (MAP) 117/87 (97) Pulse Ox 91 O2 Delivery Nasal Cannula O2 Flow Rate 3.00 FiO2 32 Capillary Refill : Less Than 3 Seconds General Appearance: No Apparent Distress, WD/WN, Anxious Eyes: Bilateral Eye Normal Inspection, Bilateral Eye PERRL, Bilateral Eye EOMI HEENT: PERRL/EOMI, TMs Normal Neck: Full Range of Motion, Normal Inspection, Non Tender Respiratory: Chest Non Tender, Crackles, Decreased Breath Sounds Cardiovascular: Regular Rate, Rhythm, No Gallop, No Murmur Gastrointestinal: Normal Bowel Sounds, No Pulsatile Mass Back: Normal Inspection Neurologic/Psychiatric: Alert, No Motor/Sensory Deficits Skin: Normal Color A/P-Cardiology Admission Diagnosis Hypoxia Pneumonia Bed bug infection Debility Assessment/Plan Hypoxia, bilateral pulmonary infiltrate, receiving treatment for pneumonia, Dr. Simms was consulted, continue to monitor next Mildly elevated BNP, left ventricular hypertrophy with normal systolic function , early diastolic dysfunction, conservative management at this time. Continue to monitor Debility with generalized weakness and loss of energy. Receiving physical therapy. Next Poor hygiene, bed bug infection, and isolation Chest pain nonspecific allergic, atypical in presentation at this time. Continue to monitor as an outpatient. I will sign off at this time and reconsult if needed Clinical Quality Measures DVT/VTE Risk/Contraindication: Risk Factor Score Per Nursin RFS Level Per Nursing on Admit: 4+=Very High MICHAELA WASHBURN MD Apr 15, 2018 16:36
[2018-04-15] MEDS: NYSTATIN CREAM (MYCOSTATIN) 30 GM TUBE TP SCH (20:38)
[2018-04-15] MEDS: cefTRIAXone INJECTION 1,000 MG in NS (IVPB) 50 ML IV SCH (20:38)
[2018-04-16 00:11] VITALS: BP 134/89
[2018-04-16 04:45] VITALS: BP 132/79
--- NOTE | 2018-04-16 06:32 | Pulmonary Progress Note ---
Subjective Time Seen by Provider: 06:30 Subjective/Events-last exam c/o SOB still on oxygen. Focused Exam Lactate Level 04/14/18 19:30: Lactic Acid Level 0.92 Exam Exam Vital Signs Date Time Temp Pulse Resp B/P (MAP) Pulse Ox O2 Delivery O2 Flow Rate FiO2 04/16/18 04:45 98.1 99 17 132/79 (96) 97 Nasal Cannula 3.00 04/16/18 01:00 86 04/16/18 00:11 97.6 68 17 134/89 (104) 93 Nasal Cannula 3.00 04/15/18 21:00 Nasal Cannula 2.00 04/15/18 19:48 89 Nasal Cannula 1.00 04/15/18 19:40 98.1 85 22 122/78 (93) 94 Nasal Cannula 3.00 04/15/18 19:00 99 04/15/18 16:05 97.4 82 18 139/86 (103) 90 Nasal Cannula 3.00 04/15/18 14:22 99 Nasal Cannula 3.00 04/15/18 13:00 85 04/15/18 12:00 97.9 68 18 137/79 (98) 99 Nasal Cannula 3.00 04/15/18 11:34 93 Nasal Cannula 3.00 04/15/18 09:00 Nasal Cannula 2.00 04/15/18 08:00 98.2 92 20 152/67 (95) 99 Nasal Cannula 3.00 04/15/18 07:12 96 Nasal Cannula 3.00 04/15/18 07:00 76 I & O 04/16/18 07:00 Intake Total 1922 ml Output Total 2050 ml Balance -128 ml General Appearance: No Apparent Distress, WD/WN, Anxious HEENT: PERRL/EOMI, TMs Normal Neck: Full Range of Motion, Normal Inspection, Non Tender Respiratory: Chest Non Tender, Crackles, Decreased Breath Sounds Cardiovascular: Regular Rate, Rhythm, No Gallop, No Murmur Capillary Refill: Less Than 3 Seconds Gastrointestinal: normal bowel sounds, non tender, soft Extremity: Normal Capillary Refill, Normal Inspection Neurologic/Psychiatric: Alert, No Motor/Sensory Deficits Skin: Normal Color Results Lab Laboratory Tests 04/14/18 15:12 04/15/18 06:34 Assessment/Plan Assessment/Plan Bilateral pulmonary infiltrates probably pulmonary edema -repeat 2mg of IV Bumex -repeat CXR Dyspnea with Hypoxia -Monitor -Oxygen Bedbug infection/ poor hygiene/ -Isolation Debility/deconditioning -PT/OT Pt needs ECF placement upon discharge 233 DILLAN PERALTA DO Apr 16, 2018 06:32
[2018-04-16] MEDS: RT-ALBUTEROL/IPRATROPIUM 3 ML (DUONEB) VIAL INH SCH ×4 (06:47→19:22)
[2018-04-16] MEDS ORDERED: CATHETER FLUSH 10 ML SYR IV PRN (07:00)
--- NOTE | 2018-04-16 07:53 | Progress Note (SOAP) ---
Subjective Subjective Date Seen by Provider: Apr 16, 2018 Time Seen by Provider: 12:24 87 yo M reports he is doing alright. He worked with PT this AM and he feels like he worked too hard. He is sitting in a hospital chair but wants to lay down to sleep. Denies any new complaints. Still has trouble breathing. He feels like if his breathing would get under control and ability to walk would improve he would go home on discharge. He coughed up some blood tinged sputum today. Agrees to go to [facility] tomorrow. Review of Systems General: No Chills, No Night Sweats HEENT: No Head Aches, No Visual Changes Pulmonary: Dyspnea, Cough Cardiovascular: No: Chest Pain, Palpitations Gastrointestinal: No: Nausea, Vomiting Genitourinary: No Dysuria Musculoskeletal: leg pain (knee pain); No: neck pain, shoulder pain Neurological: Weakness Objective Exam Vital Signs Vital Signs Date Time Temp Pulse Resp B/P (MAP) Pulse Ox O2 Delivery O2 Flow Rate FiO2 04/16/18 06:54 94 Nasal Cannula 2.00 04/16/18 04:45 98.1 99 17 132/79 (96) 97 Nasal Cannula 3.00 04/16/18 01:00 86 04/16/18 00:11 97.6 68 17 134/89 (104) 93 Nasal Cannula 3.00 04/15/18 21:00 Nasal Cannula 2.00 04/15/18 19:48 89 Nasal Cannula 1.00 04/15/18 19:40 98.1 85 22 122/78 (93) 94 Nasal Cannula 3.00 04/15/18 19:00 99 04/15/18 16:05 97.4 82 18 139/86 (103) 90 Nasal Cannula 3.00 04/15/18 14:22 99 Nasal Cannula 3.00 04/15/18 13:00 85 04/15/18 12:00 97.9 68 18 137/79 (98) 99 Nasal Cannula 3.00 04/15/18 11:34 93 Nasal Cannula 3.00 04/15/18 09:00 Nasal Cannula 2.00 04/15/18 08:00 98.2 92 20 152/67 (95) 99 Nasal Cannula 3.00 I & O 04/16/18 07:00 Intake Total 1922 ml Output Total 2050 ml Balance -128 ml General Appearance: No Apparent Distress, WD/WN Eyes: Bilateral Eye Normal Inspection, Bilateral Eye PERRL, Bilateral Eye EOMI HEENT: PERRL/EOMI Neck: Non Tender, Supple Respiratory: Chest Non Tender, Lungs Clear, No Accessory Muscle Use, Decreased Breath Sounds (bases) Cardiovascular: Regular Rate, Rhythm, No Edema Gastrointestinal: Normal Bowel Sounds, Soft Rectal: Deferred Back: No CVA Tenderness Extremity: Pedal Edema (trace) Neurologic/Psychiatric: Alert, Oriented x3 Skin: Warm/Dry Results Lab Laboratory Tests 04/15/18 12:00: Blood Gas Puncture Site R RAD, Blood Gas Patient Temperature 97.9, Arterial Blood pH 7.43, Arterial Blood Partial Pressure CO2 42, Arterial Blood Partial Pressure O2 57L, Arterial Blood HCO3 27, Arterial Blood Total CO2 28.7, Arterial Blood Oxygen Saturation 90L, Arterial Blood Base Excess 3.3H, Yoan Test YES-POS, Blood Gas Ventilator Setting NO, Blood Gas Inspired Oxygen 3 Microbiology 04/14/18 Blood Culture - Preliminary, Resulted No growth Assessment/Plan Assessment/Plan Admission Dx chest pain Debility Admission Status: Inpatient Order (span 2 midnights) Assessment and Plan 87 yo M (R07.89) Other chest pain- monitor, does not appear to be cardiac- Dr. Prasad consulted (N18.3) Chronic kidney disease, stage 3 (moderate) - po hydration- monitor kidney function- avoid nephrotoxic agents. (M17.12) Unilateral primary osteoarthritis, left knee - PT (Z59.1) Inadequate housing - working on placement (B88.8) Other specified infestations- bedbugs- pt is on isolation. (R54) Age-related physical debility- PT/OT Hypoxia - likely related to the infiltrates that are likely to be pulmonary edema- Pulm consulted - continue supplemental oxygen. bilateral pulmonary infiltrates- covering for pneumonia- afebrile, WBC normal- on azithromycin, rocephin. pulmonary edema- diuretic - left ventricular hypertrophy - medical management -acute on chronic diastolic heart failure- mild- on diuretics. Dispo: plan to discharge to [facility] 04/17/18 with PT/OT. he will complete azithromycin. continue diuretics. Admission Dx Debility Clinical Quality Measures Admission Status Admission Dx Debility DVT/VTE Risk/Contraindication: Risk Factor Score Per Nursin RFS Level Per Nursing on Admit: 4+=Very High RUSSEL GARCIA MD Apr 16, 2018 07:53
[2018-04-16 08:30] VITALS: BP 140/70
[2018-04-16 08:34] LABS: BASOPHILS % (AUTO) 0 % (0-10); EOSINOPHILS # (AUTO) 0.1 10^3/uL (0.0-0.3); EOSINOPHILS % (AUTO) 1 % (0-10); HEMATOCRIT 36 % (40-54); HEMOGLOBIN 11.9 G/DL (13.3-17.7); LYMPHOCYTES # (AUTO) 0.7 X 10^3 (1.0-4.0); LYMPHOCYTES % (AUTO) 9 % (12-44); MEAN CORPUSCULAR HEMOGLOBIN 30 PG (25-34); MEAN CORPUSCULAR HGB CONC 33 G/DL (32-36); MEAN CORPUSCULAR VOLUME 90 FL (80-99); MEAN PLATELET VOLUME 9.1 FL (7.4-10.4); MONOCYTES # (AUTO) 0.8 X 10^3 (0.0-1.0); MONOCYTES % (AUTO) 10 % (0-12); NEUTROPHILS # (AUTO) 6.3 X 10^3 (1.8-7.8); NEUTROPHILS % (AUTO) 80 % (42-75); PLATELET COUNT 269 10^3/uL (130-400); RED CELL DISTRIBUTION WIDTH 14.3 % (10.0-14.5); WHITE BLOOD COUNT 7.9 10^3/uL (4.3-11.0)
[2018-04-16] MEDS: ASPIRIN E.C. 81 MG (ECOTRIN) TAB PO SCH (08:38)
[2018-04-16] MEDS: AZITHROMYCIN 250 MG TAB (ZITHROMAX) PO SCH (08:38)
[2018-04-16] MEDS: NYSTATIN CREAM (MYCOSTATIN) 30 GM TUBE TP SCH ×3 (08:38→21:12)
[2018-04-16 08:57] LABS: ALBUMIN 3.2 GM/DL (3.2-4.5); CALCIUM 8.6 MG/DL (8.5-10.1); CREATININE SERUM 1.33 MG/DL (0.60-1.30); PHOSPHORUS 3.1 MG/DL (2.3-4.7); POTASSIUM 4.3 MMOL/L (3.6-5.0)
[2018-04-16] MEDS ORDERED: BUMETANIDE 1 MG/4 ML (BUMEX) VIAL IV SCH (09:00)
--- NOTE | 2018-04-16 10:22 | Physical Therapy Daily Note ---
PT Daily Note-Current Subjective Pt has many reasons why he can't get up/doesn't want to get up. Reports feeling dizzy with transitional movements. Pt eventually agrees to get up to chair. Pain Numeric Pain Scale: 7 Location: Right Location Body Site: Shoulder Pain Description: Ache Mental Status Patient Orientation: Person, Confused, Place, Time, Situation Transfers Functional [place] Measure 0=Not Assessed/NA 4=Minimal Assistance 1=Total Assistance 5=Supervision or Setup 2=Maximal Assistance 6=Modified [place] 3=Moderate Assistance 7=Complete IndependenceIRFPAI Quality Coding Scale 6 Independent with activity with or without an assistive device 5 Patient requires set up or clean up by helper. Patient completes activity by themselves 4 Supervision or touching assist (CGA). [place] provide cues , steadying assist 3 The helper provides less than half the effort to complete the activity 2 The helper provides more than half the effort to complete the activity 1 Dependent. The helper does all the effort to complete an activity 7 Patient refused to complete or attempt activity 9 The patient did not perform the activity before the current illness or injury 88 Not attempted due to Medical conditions or safety concerns Transfers (B, C, W/C) (FIM): 4 Supine to/from Sit: 4 (min assist with supine to sit EOB with heavy cues for sequencing and to stay on task. ) Sit to/from Stand: 4 (heavy cues for sequencing and to stay on task. ) Bed to/from Chair: 4 (FWW and close CGA for transfer.) Weight Bearing Right Lower Extremity: Right Full Weight Bearing Left Lower Extremity: Left Full Weight Bearing Treatments Bed mobility, and transfer to the chair. Took extended time to complete and pt resistant to participate. Pt on oxygen during and post treatmeht. During and post activity, his sats dropped to the low 80's, with deep breathing and rest and 3-4 minutes, sats returned to 90%. Nursing notified and was going to notify RT. Pt in chair post treatment. Assessment Current Status: Fair Progress Pt has multiple reasons why he can't/doesn't want to get up to the chair but eventually agrees. He essentially has the strength to do so, but wants extra help. Pt tolerated treatment well, once completed, but does have a decrease in oxygen sats with activity. PT Short Term Goals Short Term Goals Time Frame: Apr 18, 2018 Transfers (B,C,W/C) (FIM): 5 Gait (FIM): 1 Distance (FIM): 1=up to 49 ft Gait Distance Comment: 25' Gait Level of Assist: 5 Gait Assistive Device: FWW PT Plan Problem List Problem List: Activity Tolerance, Functional Strength, Safety, Balance, Gait, Transfer, Bed Mobility Treatment/Plan Treatment Plan: Continue Plan of Care Treatment Plan: Bed Mobility, Education, Functional Activity Reinaldo, Functional Strength, Gait, Safety, Therapeutic Exercise, Transfers Treatment Duration: Apr 18, 2018 Frequency: 4 times per week Estimated Hrs Per Day: .25 hour per day Patient and/or Family Agrees t: Yes Safety Risks/Education Patient Education: Safety Issues Teaching Recipient: Patient Teaching Methods: Discussion Response to Teaching: Reinforcement Needed Also discussed and educated on the importance of participation with therapy. Discharge Recommendations Therapy D/C Recommendations: Group Home (TCU/NH) Time/GCodes Time In: 900 Time Out: 926 Total Billed Treatment Time: 26 Total Billed Treatment visit FA 26 KYLEIGH KOHLI PT Apr 16, 2018 10:22
[2018-04-16 12:30] VITALS: BP 143/77
[2018-04-16] MEDS: CATHETER FLUSH 10 ML SYR IV SCH ×2 (14:01→21:13)
[2018-04-16 15:35] VITALS: BP 138/82
[2018-04-16 20:00] VITALS: BP 158/84
[2018-04-16] MEDS: cefTRIAXone INJECTION 1,000 MG in NS (IVPB) 50 ML IV SCH (21:13)
[2018-04-17] VITALS: BP 145/89
[2018-04-17 04:00] VITALS: BP 155/76
[2018-04-17] MEDS: CATHETER FLUSH 10 ML SYR IV SCH ×3 (06:34→21:06)
[2018-04-17] MEDS: RT-ALBUTEROL/IPRATROPIUM 3 ML (DUONEB) VIAL INH SCH ×4 (07:07→18:38)
--- NOTE | 2018-04-17 07:13 | Pulmonary Progress Note ---
Subjective Time Seen by Provider: 07:07 Subjective/Events-last exam Pt complains of generalized pain. SOB is better however still present. Focused Exam Lactate Level 04/14/18 19:30: Lactic Acid Level 0.92 Exam Exam Vital Signs Date Time Temp Pulse Resp B/P (MAP) Pulse Ox O2 Delivery O2 Flow Rate FiO2 04/17/18 04:00 98.8 87 20 155/76 (102) 97 Nasal Cannula 5.00 04/17/18 01:00 87 04/17/18 00:00 98.0 89 18 145/89 (107) 97 Nasal Cannula 5.00 04/16/18 21:00 Nasal Cannula 5.00 04/16/18 20:00 98.8 84 18 158/84 (108) 99 Nasal Cannula 3.00 04/16/18 19:23 92 Nasal Cannula 5.00 04/16/18 19:00 80 04/16/18 15:35 98.5 87 20 138/82 (100) 95 Nasal Cannula 5.00 04/16/18 14:35 97 Nasal Cannula 2.00 04/16/18 13:00 91 04/16/18 12:30 99.6 64 20 143/77 (99) 95 Nasal Cannula 5.00 04/16/18 10:38 92 Nasal Cannula 2.00 04/16/18 08:30 98.3 94 26 140/70 (93) 94 Nasal Cannula 3.00 04/16/18 08:05 Nasal Cannula 2.00 I & O 04/17/18 07:00 Intake Total 1000 ml Output Total 700 ml Balance 300 ml General Appearance: WD/WN, Anxious, Mild Distress HEENT: PERRL/EOMI Neck: Non Tender, Supple Respiratory: Chest Non Tender, Accessory Muscle Use, Decreased Breath Sounds ( bases) Cardiovascular: Regular Rate, Rhythm, No Edema Capillary Refill: Less Than 3 Seconds Gastrointestinal: normal bowel sounds, non tender, soft Extremity: Pedal Edema (trace) Neurologic/Psychiatric: Alert, Oriented x3 Skin: Warm/Dry Results Lab Laboratory Tests 04/16/18 08:17 Assessment/Plan Assessment/Plan Bilateral pulmonary infiltrates probably pulmonary edema -repeat CXR today -Will give 125mg of solumedrol x 1 then start prednisone PO for SOB and generalized arthritic pain. Dyspnea with Hypoxia -Monitor Acute on chronic renal failure -monitor Bedbug infection/ poor hygiene/ -Isolation Debility/deconditioning -PT/OT Pt needs ECF placement upon discharge 233 DILLAN PERALTA DO Apr 17, 2018 07:13
[2018-04-17] MEDS ORDERED: methylPREDNISolone 125 MG (Solu-MEDROL) VIAL IM NR (07:15)
[2018-04-17 08:00] VITALS: BP 133/91
[2018-04-17] MEDS: ASPIRIN E.C. 81 MG (ECOTRIN) TAB PO SCH (08:00)
[2018-04-17] MEDS: AZITHROMYCIN 250 MG TAB (ZITHROMAX) PO SCH (08:01)
[2018-04-17] MEDS ORDERED: ACETAMINOPHEN 325 MG TABLET/CAPLET (TYLENOL) PO PRN (08:30)
--- NOTE | 2018-04-17 08:36 | Diagnostic Imaging Report ---
INDICATION: Shortness of breath. COMPARISON: 04/15/2018 FINDINGS: Single frontal view of the chest is obtained. Cardiac enlargement and mild central venous distention appears similar to the prior study. Diffuse interstitial infiltrates throughout both lungs appear fairly similar to the prior study. Findings may be minimally worse on the right. No pneumothorax or pleural fluid is suspected. IMPRESSION: Cardiac enlargement with mild central venous distention and diffuse interstitial opacities throughout both lungs are again demonstrated. When compared to the recent prior study, there may be minimal worsening of disease on the right. Again findings may be on the basis of chronic interstitial disease with or without superimposed edema or infiltrate. Dictated by: Dictated on workstation # [id number]
[2018-04-17] MEDS: NYSTATIN CREAM (MYCOSTATIN) 30 GM TUBE TP SCH ×3 (08:39→21:05)
--- NOTE | 2018-04-17 08:42 | Progress Note (SOAP) ---
Subjective Subjective Date Seen by Provider: Apr 17, 2018 Time Seen by Provider: 08:35 87 yo M reports he is still in pain. Right shoulder started hurting more this AM. It hurt days ago- he denies any injury that he is aware of- he did sleep on the tele monitor last night. He is also tender at the top of his sternum. He would like something for pain then be transferred to [facility] tomorrow. He is requiring 5L oxygen at this time. His baseline is 2-3L. He was given solumedrol IV today to see if it will help with his breathing and arthritic pains. Review of Systems General: No Chills, No Night Sweats HEENT: No Head Aches, No Visual Changes Pulmonary: Dyspnea, Cough (coughing up brown sputum) Cardiovascular: No: Chest Pain, Palpitations Gastrointestinal: No: Nausea, Vomiting Genitourinary: No Dysuria Musculoskeletal: shoulder pain (right), leg pain (knee pain); No: neck pain Neurological: Weakness Objective Exam Vital Signs Vital Signs Date Time Temp Pulse Resp B/P (MAP) Pulse Ox O2 Delivery O2 Flow Rate FiO2 04/17/18 07:14 93 Nasal Cannula 5.00 04/17/18 04:00 98.8 87 20 155/76 (102) 97 Nasal Cannula 5.00 04/17/18 01:00 87 04/17/18 00:00 98.0 89 18 145/89 (107) 97 Nasal Cannula 5.00 04/16/18 21:00 Nasal Cannula 5.00 04/16/18 20:00 98.8 84 18 158/84 (108) 99 Nasal Cannula 3.00 04/16/18 19:23 92 Nasal Cannula 5.00 04/16/18 19:00 80 04/16/18 15:35 98.5 87 20 138/82 (100) 95 Nasal Cannula 5.00 04/16/18 14:35 97 Nasal Cannula 2.00 04/16/18 13:00 91 04/16/18 12:30 99.6 64 20 143/77 (99) 95 Nasal Cannula 5.00 04/16/18 10:38 92 Nasal Cannula 2.00 I & O 04/17/18 07:00 Intake Total 1000 ml Output Total 700 ml Balance 300 ml General Appearance: WD/WN; No Anxious; Mild Distress Eyes: Bilateral Eye Normal Inspection, Bilateral Eye PERRL, Bilateral Eye EOMI HEENT: PERRL/EOMI Neck: Non Tender, Supple Respiratory: Chest Non Tender, Accessory Muscle Use, Decreased Breath Sounds ( bases) Cardiovascular: Regular Rate, Rhythm, No Edema Gastrointestinal: Normal Bowel Sounds, Soft Rectal: Deferred Back: No CVA Tenderness Extremity: Pedal Edema (trace), Other (top of sternum pain with palpation- some soft tissue edema.) Neurologic/Psychiatric: Alert, Oriented x3 Skin: Warm/Dry Results Lab Microbiology 04/14/18 Blood Culture - Preliminary, Resulted No growth Assessment/Plan Assessment/Plan Admission Dx chest pain Debility Assessment and Plan 87 yo M (R07.89) Other chest pain- monitor, does not appear to be cardiac- Dr. Prasad consulted (N18.3) Acute on Chronic kidney disease, stage 3 (moderate) - po hydration- monitor kidney function- avoid nephrotoxic agents. (M17.12) Unilateral primary osteoarthritis, left knee - PT (Z59.1) Inadequate housing - working on placement (B88.8) Other specified infestations- bedbugs- pt is on isolation. (R54) Age-related physical debility- PT/OT Hypoxia - likely related to the infiltrates that are likely to be pulmonary edema- Pulm consulted - continue supplemental oxygen. Acute hypoxic respiratory distress- steroids. bilateral pulmonary infiltrates- covering for pneumonia- afebrile, WBC normal- on azithromycin, rocephin. pulmonary edema- diuretic - left ventricular hypertrophy - medical management -acute on chronic diastolic heart failure- mild- on diuretics. Dispo: plan to discharge to [facility] 04/18/18 with PT/OT. he will complete azithromycin, cefdinir. continue diuretics. Will see how steroids helps with his respiratory status and arthritic pain. Checking right shoulder xray, right clavicle, cxr. will resume lisinopril when Cr improves. Admission Dx chest pain Debility Clinical Quality Measures Admission Status Admission Dx chest pain Debility DVT/VTE Risk/Contraindication: Risk Factor Score Per Nursin RFS Level Per Nursing on Admit: 4+=Very High RUSSEL GARCIA MD Apr 17, 2018 08:42
[2018-04-17] MEDS ORDERED: amLODIPine 10 MG (NORVASC) TAB PO SCH (09:00)
[2018-04-17] MEDS ORDERED: lisINopril 5 MG (PRINIVIL) TABLET PO SCH (09:00)
[2018-04-17 09:01] LABS: BASOPHILS % (AUTO) 0 % (0-10); EOSINOPHILS # (AUTO) 0.2 10^3/uL (0.0-0.3); EOSINOPHILS % (AUTO) 2 % (0-10); HEMATOCRIT 35 % (40-54); HEMOGLOBIN 11.4 G/DL (13.3-17.7); LYMPHOCYTES # (AUTO) 0.9 X 10^3 (1.0-4.0); LYMPHOCYTES % (AUTO) 12 % (12-44); MEAN CORPUSCULAR HEMOGLOBIN 29 PG (25-34); MEAN CORPUSCULAR HGB CONC 32 G/DL (32-36); MEAN CORPUSCULAR VOLUME 90 FL (80-99); MEAN PLATELET VOLUME 9.3 FL (7.4-10.4); MONOCYTES % (AUTO) 14 % (0-12); NEUTROPHILS # (AUTO) 5.5 X 10^3 (1.8-7.8); NEUTROPHILS % (AUTO) 73 % (42-75); PLATELET COUNT 263 10^3/uL (130-400); RED BLOOD COUNT 3.93 10^6/uL (4.35-5.85); RED CELL DISTRIBUTION WIDTH 14.4 % (10.0-14.5); WHITE BLOOD COUNT 7.6 10^3/uL (4.3-11.0)
[2018-04-17 09:16] LABS: CALCIUM 8.5 MG/DL (8.5-10.1); CREATININE SERUM 1.4 MG/DL (0.60-1.30); POTASSIUM 4.2 MMOL/L (3.6-5.0)
[2018-04-17] MEDS ORDERED: APIXABAN 5 MG (ELIQUIS) TABLET PO NR (09:45)
[2018-04-17] MEDS ORDERED: meTOprolol SUCCINATE 100 MG (TOPROL XL) TAB PO NR (09:45)
--- NOTE | 2018-04-17 09:54 | Progress Note-Cardiology ---
Cardiology SOAP Progress Note Subjective: Lying bed. Reports a funny feeling in his chest, pressure sensation, non- specific. C/O some dizziness. Dyspnea which is unchanged from previous. Objective: I&O/Vital Signs 04/17/18 04/17/18 04/17/18 04/17/18 00:00 01:00 04:00 07:00 Temp 98.0 98.8 Pulse 89 87 87 73 Resp 18 20 B/P (MAP) 145/89 (107) 155/76 (102) Pulse Ox 97 97 O2 Delivery Nasal Cannula Nasal Cannula O2 Flow Rate 5.00 5.00 04/17/18 07:14 Pulse Ox 93 O2 Delivery Nasal Cannula O2 Flow Rate 5.00 04/17/18 00:00 Intake Total 600 ml Output Total 300 ml Balance 300 ml Weight (Pounds): 203 Weight (Ounces): 2.0 Weight (Calculated Kilograms): 92.341406 Constitutional: AAO x 3 Respiratory: crackles (bilat LL), wheezing (scattered) Cardiovascular: irregularly irregular; No JVD; S1 and S2 Gastrointestional: No tender; soft, audible bowel sounds Extremities: swelling, no lower extremity edema bilateral Neurologic/Psychiatric: grossly intact Skin: No rash, No ulcerations Results/Procedures: Labs Laboratory Tests 04/17/18 08:40: White Blood Count 7.6, Red Blood Count 3.93L, Hemoglobin 11.4L, Hematocrit 35L, Mean Corpuscular Volume 90, Mean Corpuscular Hemoglobin 29, Mean Corpuscular Hemoglobin Concent 32, Red Cell Distribution Width 14.4, Platelet Count 263, Mean Platelet Volume 9.3, Neutrophils (%) (Auto) 73, Lymphocytes (%) (Auto) 12, Monocytes (%) (Auto) 14H, Eosinophils (%) (Auto) 2, Basophils (%) (Auto) 0, Neutrophils # (Auto) 5.5, Lymphocytes # (Auto) 0.9L, Monocytes # (Auto) 1.0, Eosinophils # (Auto) 0.2, Basophils # (Auto) 0.0, Sodium Level 135, Potassium Level 4.2, Chloride Level 101, Carbon Dioxide Level 22, Anion Gap 12, Blood Urea Nitrogen 29H, Creatinine 1.40H, Estimat Glomerular Filtration Rate 48, BUN/ Creatinine Ratio 21, Glucose Level 118H, Calcium Level 8.5, Thyroid Stimulating Hormone (TSH) 2.26 Microbiology 04/14/18 Blood Culture - Preliminary, Resulted No growth Procedures NAME: HOLDEN M[facility]A [facility] REC#: [id number] PT STATUS: ADM IN : 1930 PHYSICIAN: DILLAN SIMMS DO ADMIT DATE: 04/14/18 Draft Date of Exam:04/17/18 CHEST 1 VIEW, AP/PA ONLY INDICATION: Shortness of breath. COMPARISON: 04/15/2018 FINDINGS: Single frontal view of the chest is obtained. Cardiac enlargement and mild central venous distention appears similar to the prior study. Diffuse interstitial infiltrates throughout both lungs appear fairly similar to the prior study. Findings may be minimally worse on the right. No pneumothorax or pleural fluid is suspected. IMPRESSION: Cardiac enlargement with mild central venous distention and diffuse interstitial opacities throughout both lungs are again demonstrated. When compared to the recent prior study, there may be minimal worsening of disease on the right. Again findings may be on the basis of chronic interstitial disease with or without superimposed edema or infiltrate. Dictated on workstation # [id number] Dict: 04/17/18 0829 Trans: 04/17/18 0835 [id number] Interpreted by: AILYN ARGUETA DO Electronically signed by: A/P: Assessment: New onset a-fib with RVR - first documented on ECG of 04-17-18 Nonspecific chest discomfort with new onset of a-fib - no previous evidence of ACS HTN Hypoxia, bilateral pulmonary infiltrate, receiving treatment for pneumonia, Dr. Simms managing Left ventricular hypertrophy with normal systolic function (LVEF 50-55%), early diastolic dysfunction - per echo by Dr. Prasad Debility with generalized weakness and loss of energy. Receiving physical therapy Poor hygiene, bed bug infection, in isolation Acute renal insufficiency Plan: New onset a-fib first diagnosed on ECG of 04-17-18 Start Cardizem CD for rate control Stop Norvasc to allow BP room for BB Start OAC with Eliquis for stroke prophylaxis Stop Heparin Check TSH Labs reviewed Monitor lab Records of this hospitalization reviewed Keep on tele Trop x 2 Physician Assessment Physician Assessment Reports dizziness. Had described some R upper chest discomfort to his RN, but has not reported any chest discomfort to me. No feeling of palp. No syncope. Has chronic shortness of breath Lungs: coarse basal crackles; prolonged exp Cor: irreg, rapid rate Ext: no c/c/e A&R * CCB for rate control * Apixaban for stoke prophylaxis * Serial enzymes to eval for cor ischemia * Keep on tele * Monitor labs HEMA [employer]AN Apr 17, 2018 09:54 JUAN J MAGANA MD FACP FACC CCDS Apr 17, 2018 10:49
[2018-04-17] MEDS ORDERED: DILTIAZEM 240 MG (CARDIZEM CD) CAP PO NR (10:00)
[2018-04-17 12:00] VITALS: BP 91/55
--- NOTE | 2018-04-17 13:42 | Physical Therapy Progress Note ---
Therapy Progress Note RN reports patient has had episodes of elevated HR and dizziness. Patient not dismissing on this date. PT to assess in [place] PT Apr 17, 2018 13:42
--- NOTE | 2018-04-17 15:24 | Diagnostic Imaging Report ---
INDICATION: Clavicle pain. COMPARISON: Chest radiograph from the same day. EXAMINATION: Two radiographic views of the right clavicle were obtained. FINDINGS: There is no evidence of acute fracture or dislocation. There are mild to moderate degenerative changes in the right AC joint. Note is made of masslike opacity within the right apex, measuring approximately 4.2 cm. Note is also made of narrowing of the acromiohumeral joint space. IMPRESSION: 1. No radiographic evidence of acute fracture or dislocation of the right clavicle. 2. Masslike opacity within the right apex. Correlation with postcontrast CT chest is recommended. 3. Findings suggestive of chronic rotator cuff tear. Dictated by: Dictated on workstation # [id number]
--- NOTE | 2018-04-17 15:28 | Diagnostic Imaging Report ---
Indication: Pain and swelling of the right shoulder and clavicle. Comparison: Chest radiograph from same day. Findings: Three radiographic views of the right shoulder were obtained and show no evidence of acute fracture or dislocation. There is severe narrowing of the acromiohumeral joint space with remodeling of the undersurface of the acromion. Note is also made of moderate degenerative changes of the right AC joint. Glenohumeral joint space is maintained. Included portion of the upper chest shows masslike opacity within the medial right apex measuring approximately 4.2 cm. Interstitial opacities within the included portions of the right upper lung are also noted. Impression: 1. No radiographic evidence of acute fracture or dislocation of the right shoulder. 2. Masslike opacity within the medial right apex. Correlation with postcontrast CT chest is recommended. 3. Findings suggestive of chronic rotator cuff tear. Dictated by: Dictated on workstation # [id number]
[2018-04-17 16:59] VITALS: BP 93/55
[2018-04-17 20:37] VITALS: BP 105/66
[2018-04-17] MEDS ORDERED: meTOprolol SUCCINATE 100 MG (TOPROL XL) TAB PO SCH (21:00)
[2018-04-17] MEDS: APIXABAN 5 MG (ELIQUIS) TABLET PO SCH (21:05)
[2018-04-18] VITALS: BP 96/55
[2018-04-18 03:54] VITALS: BP 104/63
[2018-04-18 05:57] LABS: HEMOGLOBIN 10.9 G/DL (13.3-17.7); MEAN PLATELET VOLUME 9.3 FL (7.4-10.4); RED BLOOD COUNT 3.65 10^6/uL (4.35-5.85); RED CELL DISTRIBUTION WIDTH 14.2 % (10.0-14.5); WHITE BLOOD COUNT 10.4 10^3/uL (4.3-11.0)
[2018-04-18] MEDS: CATHETER FLUSH 10 ML SYR IV SCH ×3 (06:10→21:17)
[2018-04-18 06:20] LABS: CALCIUM 8.8 MG/DL (8.5-10.1); CREATININE SERUM 1.74 MG/DL (0.60-1.30); MAGNESIUM 2.2 MG/DL (1.8-2.4); POTASSIUM 4.6 MMOL/L (3.6-5.0)
--- NOTE | 2018-04-18 06:20 | Pulmonary Progress Note ---
Subjective Time Seen by Provider: 06:20 Subjective/Events-last exam persistent SOB and generalized pain. Exam Exam Vital Signs Date Time Temp Pulse Resp B/P (MAP) Pulse Ox O2 Delivery O2 Flow Rate FiO2 04/18/18 03:54 98.3 68 17 104/63 (77) 94 Nasal Cannula 5.00 04/18/18 01:00 69 04/18/18 00:00 97.2 76 19 96/55 (69) 93 Nasal Cannula 5.00 04/17/18 21:00 Nasal Cannula 5.00 04/17/18 20:37 99.5 71 16 105/66 (79) 92 Nasal Cannula 5.00 04/17/18 19:00 87 04/17/18 18:38 Nasal Cannula 5.00 04/17/18 16:59 99.1 67 16 93/55 (68) 93 04/17/18 14:35 93 Nasal Cannula 5.00 04/17/18 13:00 89 04/17/18 12:00 99.4 80 20 91/55 (67) 94 Nasal Cannula 5.00 04/17/18 11:05 81 93 04/17/18 11:04 Nasal Cannula 04/17/18 08:10 Nasal Cannula 5.00 04/17/18 08:00 99.2 85 20 133/91 (105) 94 Nasal Cannula 5.00 04/17/18 07:14 93 Nasal Cannula 5.00 04/17/18 07:00 73 I & O 04/18/18 06:59 Intake Total 1470 ml Output Total 1000 ml Balance 470 ml General Appearance: WD/WN; No Anxious; Mild Distress HEENT: PERRL/EOMI Neck: Non Tender, Supple Respiratory: Chest Non Tender, Accessory Muscle Use, Decreased Breath Sounds ( bases) Cardiovascular: Regular Rate, Rhythm, No Edema Capillary Refill: Less Than 3 Seconds Gastrointestinal: normal bowel sounds, non tender, soft Extremity: Pedal Edema (trace), Other (top of sternum pain with palpation- some soft tissue edema.) Neurologic/Psychiatric: Alert, Oriented x3 Skin: Warm/Dry Results Lab Laboratory Tests 04/16/18 08:17 04/17/18 08:40 04/18/18 05:30 Assessment/Plan Assessment/Plan Bilateral pulmonary infiltrates probably pulmonary edema -XRay of clavicals shows a possible lung mass -will Check CT of chest r/o lung mass - prednisone PO Dyspnea with Hypoxia -Monitor Acute on chronic renal failure -monitor Bedbug infection/ poor hygiene/ -Isolation Debility/deconditioning -PT/OT Pt needs ECF placement upon discharge 233 DILLAN PERALTA DO Apr 18, 2018 06:20
[2018-04-18] MEDS ORDERED: predniSONE 20 MG TAB PO SCH (07:00)
--- NOTE | 2018-04-18 07:42 | Progress Note (SOAP) ---
Subjective Subjective Date Seen by Provider: Apr 18, 2018 Time Seen by Provider: 07:37 87 yo M reports he is still in pain and short of breath. But overall he feels much better- still not quite up to being discharged. No overnight events per patient. Yesterday patient went into Afib with RVR- Dr. Riddle was consulted and Blackwell was placed on eliquis and diltiazem. Pt has a soft tissue mass- at top of sternum- Xray of his clavicle and shoulder demonstrate concern for a right side mass- CT of chest without contrast obtained due to pt's worsening kidney failure. Review of Systems General: No Chills, No Night Sweats HEENT: No Head Aches, No Visual Changes Pulmonary: Dyspnea, Cough (coughing up brown sputum) Cardiovascular: No: Chest Pain, Palpitations Gastrointestinal: No: Nausea, Vomiting Genitourinary: No Dysuria Musculoskeletal: shoulder pain (right), leg pain (knee pain); No: neck pain Neurological: Weakness Objective Exam Vital Signs Vital Signs Date Time Temp Pulse Resp B/P (MAP) Pulse Ox O2 Delivery O2 Flow Rate FiO2 04/18/18 03:54 98.3 68 17 104/63 (77) 94 Nasal Cannula 5.00 04/18/18 01:00 69 04/18/18 00:00 97.2 76 19 96/55 (69) 93 Nasal Cannula 5.00 04/17/18 21:00 Nasal Cannula 5.00 04/17/18 20:37 99.5 71 16 105/66 (79) 92 Nasal Cannula 5.00 04/17/18 19:00 87 04/17/18 18:38 Nasal Cannula 5.00 04/17/18 16:59 99.1 67 16 93/55 (68) 93 04/17/18 14:35 93 Nasal Cannula 5.00 04/17/18 13:00 89 04/17/18 12:00 99.4 80 20 91/55 (67) 94 Nasal Cannula 5.00 04/17/18 11:05 81 93 04/17/18 11:04 Nasal Cannula 04/17/18 08:10 Nasal Cannula 5.00 I & O 04/18/18 07:00 Intake Total 1470 ml Output Total 1350 ml Balance 120 ml General Appearance: WD/WN; No Anxious; Mild Distress Eyes: Bilateral Eye Normal Inspection, Bilateral Eye PERRL, Bilateral Eye EOMI HEENT: PERRL/EOMI Neck: Non Tender, Supple Respiratory: Chest Non Tender, Accessory Muscle Use, Decreased Breath Sounds ( bases) Cardiovascular: Regular Rate, Rhythm (with PVCs.), No Edema Gastrointestinal: Normal Bowel Sounds, Soft Rectal: Deferred Back: No CVA Tenderness Extremity: Pedal Edema (trace), Other (top of sternum pain with palpation- some soft tissue edema.) Neurologic/Psychiatric: Alert, Oriented x3 Skin: Warm/Dry Results Lab Laboratory Tests 04/17/18 08:40: White Blood Count 7.6, Red Blood Count 3.93L, Hemoglobin 11.4L, Hematocrit 35L, Mean Corpuscular Volume 90, Mean Corpuscular Hemoglobin 29, Mean Corpuscular Hemoglobin Concent 32, Red Cell Distribution Width 14.4, Platelet Count 263, Mean Platelet Volume 9.3, Neutrophils (%) (Auto) 73, Lymphocytes (%) (Auto) 12, Monocytes (%) (Auto) 14H, Eosinophils (%) (Auto) 2, Basophils (%) (Auto) 0, Neutrophils # (Auto) 5.5, Lymphocytes # (Auto) 0.9L, Monocytes # (Auto) 1.0, Eosinophils # (Auto) 0.2, Basophils # (Auto) 0.0, Sodium Level 135, Potassium Level 4.2, Chloride Level 101, Carbon Dioxide Level 22, Anion Gap 12, Blood Urea Nitrogen 29H, Creatinine 1.40H, Estimat Glomerular Filtration Rate 48, BUN/ Creatinine Ratio 21, Glucose Level 118H, Calcium Level 8.5, Troponin I < 0.30, Thyroid Stimulating Hormone (TSH) 2.26 04/17/18 16:06: Troponin I < 0.30 04/18/18 05:30: White Blood Count 10.4, Red Blood Count 3.65L, Hemoglobin 10.9L, Hematocrit 32L , Mean Corpuscular Volume 89, Mean Corpuscular Hemoglobin 30, Mean Corpuscular Hemoglobin Concent 34, Red Cell Distribution Width 14.2, Platelet Count 310, Mean Platelet Volume 9.3, Sodium Level 134L, Potassium Level 4.6, Chloride Level 102, Carbon Dioxide Level 21, Anion Gap 11, Blood Urea Nitrogen 47H, Creatinine 1.74H, Estimat Glomerular Filtration Rate 37, BUN/Creatinine Ratio 27 , Glucose Level 158H, Calcium Level 8.8, Magnesium Level 2.2 Microbiology 04/14/18 Blood Culture - Preliminary, Resulted No growth Assessment/Plan Assessment/Plan Admission Dx chest pain Debility Assessment and Plan 87 yo M (N18.3) Acute on Chronic kidney disease, stage 3 (moderate) - po hydration- monitor kidney function- avoid nephrotoxic agents. (M17.12) Unilateral primary osteoarthritis, left knee - PT (Z59.1) Inadequate housing - working on placement (B88.8) Other specified infestations- bedbugs- pt is on isolation. (R54) Age-related physical debility- PT/OT Acute hypoxic respiratory distress- steroids. Pulm consulted. work on titrating oxygen down as tolerated bilateral pulmonary infiltrates- covering for pneumonia- afebrile, WBC normal- on azithromycin pulmonary edema- diuretics held due to LYDIA - left ventricular hypertrophy - medical management -acute on chronic diastolic heart failure- mild- -Atrial fibrillation - on diltiazem -Lung mass- CT w/o contrast pending Dispo: plan to discharge to [facility] when stable enough with PT/OT. he will complete azithromycin --With worsening of Cr, kidney failure, new concern for a lung mass and new onset atrial fibrillation will keep inpatient for medical stabilization. New goal would be to discharge to [facility] SaturdayApril 21. Appreciate Pulm and Cardiology recommendations. will resume lisinopril when Cr improves. Admission Dx chest pain Debility Clinical Quality Measures Admission Status Admission Dx chest pain Debility DVT/VTE Risk/Contraindication: Risk Factor Score Per Nursin RFS Level Per Nursing on Admit: 4+=Very High RUSSEL GARCIA MD Apr 18, 2018 07:42
[2018-04-18] MEDS: RT-ALBUTEROL/IPRATROPIUM 3 ML (DUONEB) VIAL INH SCH ×4 (07:49→19:59)
[2018-04-18] MEDS: NS IV 1000 ML 1,000 ML IV SCH ×2 (08:45→21:31)
[2018-04-18] MEDS: NYSTATIN CREAM (MYCOSTATIN) 30 GM TUBE TP SCH ×3 (08:45→20:34)
[2018-04-18] MEDS: APIXABAN 5 MG (ELIQUIS) TABLET PO SCH ×2 (08:45→20:33)
[2018-04-18] MEDS: ASPIRIN E.C. 81 MG (ECOTRIN) TAB PO SCH (08:45)
[2018-04-18] MEDS: DILTIAZEM 240 MG (CARDIZEM CD) CAP PO SCH (08:45)
[2018-04-18] MEDS: AZITHROMYCIN 250 MG TAB (ZITHROMAX) PO SCH (08:45)
[2018-04-18 08:55] VITALS: BP 132/86
--- NOTE | 2018-04-18 09:45 | Physical Therapy Progress Note ---
Therapy Progress Note Patient adamantly declined PT due to patient reports his left knee is fractured (this is not accurate) and his right shoulder is too painful. Patient reports, "All I want to do is eat my breakfast and be left alone." Nursing notified. 1 ref ([id number]) RALPH WARREN PT Apr 18, 2018 09:45
--- NOTE | 2018-04-18 11:47 | Diagnostic Imaging Report ---
PROCEDURE: CT chest without contrast. TECHNIQUE: Multiple contiguous axial images were obtained through the chest without the use of intravenous contrast. INDICATION: Lung mass. There are no previous CT chest examinations available for comparison. The plain film examination of the chest performed on 04/17/2018 revealed cardiomegaly and chronic pulmonary disease and raised the question of superimposed edema and/or infiltrate. On this exam, the heart is enlarged and there are coronary artery calcifications evident. There are diffuse interstitial densities in both lungs as well as groundglass densities throughout both lower lobes and to lesser extent the upper lobes. These groundglass densities are nonspecific in appearance and may well be chronic in nature as as well. The possibly that there is an element of acute pneumonia/pulmonary edema cannot be entirely excluded. There is no significant pleural effusion identified. There is no parenchymal lung mass visualized with certainty. The plain film exam did reveal that the superior mediastinum is widened. This is secondary to vascular ectasia and not a mediastinal mass. The ascending aorta is not abnormally dilated. There is a 1.2 x 2.7 cm pretracheal node on the right. This node is enlarged but nonspecific in appearance. There are few other smaller mediastinal nodes as well. The thyroid gland is generally unremarkable. The sections through the upper abdomen show that there is distention of both large and small bowel by gas and that there is a least moderate amount of fluid in the visualized colon and the small bowel. This appearance is nonspecific but may be secondary to an ileus. It would be less likely that there is a bowel obstruction. If further evaluation is desired, then CT of the abdomen and pelvis would be recommended. There is a 2.9 x 3.6 cm hiatal hernia. The bone windows are unremarkable for fracture or for destructive lesion. IMPRESSION: 1. There is cardiomegaly and severe chronic interstitial pulmonary disease. The groundglass densities involving both lungs may also be chronic in nature. The possibility that there is acute pneumonia/pulmonary edema superimposed on the underlying chronic pulmonary disease cannot be entirely excluded. 2. There is an enlarged pretracheal lymph node. This is probably secondary a reactive node than a node involved by neoplasm. 3. The bowel gas pattern is nonspecific. This finding is more suggestive of ileus than a bowel obstruction. Recommendations as above. Dictated by: Dictated on workstation # [id number]
[2018-04-18 12:30] VITALS: BP 155/79
--- NOTE | 2018-04-18 12:55 | Progress Note-Cardiology ---
Cardiology SOAP Progress Note Subjective: In bed. No c/o CP, palpitations. Feels his breathing is better than yesterday. Objective: I&O/Vital Signs 04/18/18 04/18/18 04/18/18 04/18/18 01:00 03:54 07:00 07:50 Temp 98.3 Pulse 69 68 70 Resp 17 B/P (MAP) 104/63 (77) Pulse Ox 94 94 O2 Delivery Nasal Cannula Nasal Cannula O2 Flow Rate 5.00 5.00 04/18/18 04/18/18 04/18/18 04/18/18 08:55 09:00 11:02 11:02 Temp 98.9 Pulse 70 Resp 20 B/P (MAP) 132/86 (101) Pulse Ox 94 92 92 O2 Delivery Nasal Cannula Nasal Cannula Nasal Cannula Nasal Cannula O2 Flow Rate 5.00 5.00 5.00 5.00 04/18/18 00:00 Intake Total 1470 ml Output Total 1000 ml Balance 470 ml Weight (Pounds): 203 Weight (Ounces): 2.0 Weight (Calculated Kilograms): 92.561552 Constitutional: AAO x 3 Respiratory: crackles (bilat LL), wheezing (scattered) Cardiovascular: regular rate-rhythm; No JVD; S1 and S2 Gastrointestional: No tender; soft, audible bowel sounds Extremities: swelling, no lower extremity edema bilateral Neurologic/Psychiatric: grossly intact Skin: No rash, No ulcerations Results/Procedures: Labs Laboratory Tests 04/17/18 16:06: Troponin I < 0.30 04/18/18 05:30: White Blood Count 10.4, Red Blood Count 3.65L, Hemoglobin 10.9L, Hematocrit 32L , Mean Corpuscular Volume 89, Mean Corpuscular Hemoglobin 30, Mean Corpuscular Hemoglobin Concent 34, Red Cell Distribution Width 14.2, Platelet Count 310, Mean Platelet Volume 9.3, Sodium Level 134L, Potassium Level 4.6, Chloride Level 102, Carbon Dioxide Level 21, Anion Gap 11, Blood Urea Nitrogen 47H, Creatinine 1.74H, Estimat Glomerular Filtration Rate 37, BUN/Creatinine Ratio 27 , Glucose Level 158H, Calcium Level 8.8, Magnesium Level 2.2 Microbiology 04/14/18 Blood Culture - Preliminary, Resulted No growth Laboratory Tests 04/17/18 08:40 04/18/18 05:30 Procedures NAME: HOLDEN MORA [facility] REC#: [id number] PT STATUS: ADM IN : 1930 PHYSICIAN: DILLAN SIMMS DO ADMIT DATE: 04/14/18 Draft Date of Exam:04/18/18 CT CHEST WO PROCEDURE: CT chest without contrast. TECHNIQUE: Multiple contiguous axial images were obtained through the chest without the use of intravenous contrast. INDICATION: Lung mass. There are no previous CT chest examinations available for comparison. The plain film examination of the chest performed on 04/17/2018 revealed cardiomegaly and chronic pulmonary disease and raised the question of superimposed edema and/or infiltrate. On this exam, the heart is enlarged and there are coronary artery calcifications evident. There are diffuse interstitial densities in both lungs as well as groundglass densities throughout both lower lobes and to lesser extent the upper lobes. These groundglass densities are nonspecific in appearance and may well be chronic in nature as as well. The possibly that there is an element of acute pneumonia/pulmonary edema cannot be entirely excluded. There is no significant pleural effusion identified. There is no parenchymal lung mass visualized with certainty. The plain film exam did reveal that the superior mediastinum is widened. This is secondary to vascular ectasia and not a mediastinal mass. The ascending aorta is not abnormally dilated. There is a 1.2 x 2.7 cm pretracheal node on the right. This node is enlarged but nonspecific in appearance. There are few other smaller mediastinal nodes as well. The thyroid gland is generally unremarkable. The sections through the upper abdomen show that there is distention of both large and small bowel by gas and that there is a least moderate amount of fluid in the visualized colon and the small bowel. This appearance is nonspecific but may be secondary to an ileus. It would be less likely that there is a bowel obstruction. If further evaluation is desired, then CT of the abdomen and pelvis would be recommended. There is a 2.9 x 3.6 cm hiatal hernia. The bone windows are unremarkable for fracture or for destructive lesion. IMPRESSION: 1. There is cardiomegaly and severe chronic interstitial pulmonary disease. The groundglass densities involving both lungs may also be chronic in nature. The possibility that there is no other acute pneumonia/pulmonary edema superimposed on the underlying chronic pulmonary disease cannot be entirely excluded. 2. There is an enlarged pretracheal lymph node. This is more likely to be a reactive node than a node involved by neoplasm. 3. The bowel gas pattern is nonspecific. This finding is more suggestive of ileus than a bowel obstruction. Recommendations as above. Dictated on workstation # [id number] Dict: 04/18/18 0830 Trans: 04/18/18 1146 CVB [id number] Interpreted by: ARSLAN BIRMINGHAM MD Electronically signed by: A/P: Assessment: New onset a-fib with RVR - first documented on ECG of 04-17-18 - currently SR with PVC's Nonspecific chest discomfort with new onset of a-fib - no previous evidence of ACS HTN Hypoxia, bilateral pulmonary infiltrate, receiving treatment for pneumonia, Dr. Simms managing Left ventricular hypertrophy with normal systolic function (LVEF 50-55%), early diastolic dysfunction - per echo by Dr. Prasad Debility with generalized weakness and loss of energy. Receiving physical therapy Poor hygiene, bed bug infection, in isolation Acute renal insufficiency Plan: New onset a-fib first diagnosed on ECG of 04-17-18 - currently SR with PVC's Continue current medications Continue OAC with Eliquis for stroke prophylaxis Monitor lab HEMA BENTLEY Apr 18, 2018 12:55
[2018-04-18 16:11] VITALS: BP 96/49
[2018-04-18 16:34] LABS: ALBUMIN 3.2 GM/DL (3.2-4.5); CALCIUM 8.5 MG/DL (8.5-10.1); CREATININE SERUM 2.03 MG/DL (0.60-1.30); PHOSPHORUS 3.3 MG/DL (2.3-4.7); POTASSIUM 3.8 MMOL/L (3.6-5.0)
[2018-04-18 20:00] VITALS: BP 120/71
[2018-04-19] VITALS: BP 114/72
[2018-04-19] MEDS ORDERED: FUROSEMIDE 40 MG/4 ML INJ (LASIX) IVP STA (02:31)
[2018-04-19] MEDS ORDERED: methylPREDNISolone 125 MG (Solu-MEDROL) VIAL IVP STA (02:31)
[2018-04-19] MEDS ORDERED: methylPREDNISolone 125 MG (Solu-MEDROL) VIAL ONE (02:49)
[2018-04-19] MEDS ORDERED: FUROSEMIDE 40 MG/4 ML INJ (LASIX) ONE (02:50)
[2018-04-19] MEDS ORDERED: morphine INJ 4 MG/ML 1 ML (VIAL/SYRINGE) ONE (02:50)
[2018-04-19] MEDS: morphine INJ 4 MG/ML 1 ML (VIAL/SYRINGE) IVP PRN ×2 (03:00→10:14)
[2018-04-19 04:00] VITALS: BP 120/77
[2018-04-19] MEDS: CATHETER FLUSH 10 ML SYR IV SCH ×3 (06:00→21:32)
[2018-04-19 06:50] LABS: BASOPHILS % (AUTO) 0 % (0-10); EOSINOPHILS % (AUTO) 0 % (0-10); HEMATOCRIT 34 % (40-54); HEMOGLOBIN 11.1 G/DL (13.3-17.7); LYMPHOCYTES # (AUTO) 0.2 X 10^3 (1.0-4.0); LYMPHOCYTES % (AUTO) 1 % (12-44); MEAN CORPUSCULAR HEMOGLOBIN 29 PG (25-34); MEAN CORPUSCULAR HGB CONC 33 G/DL (32-36); MEAN CORPUSCULAR VOLUME 89 FL (80-99); MEAN PLATELET VOLUME 9.4 FL (7.4-10.4); MONOCYTES # (AUTO) 1.1 X 10^3 (0.0-1.0); MONOCYTES % (AUTO) 7 % (0-12); NEUTROPHILS # (AUTO) 13.5 X 10^3 (1.8-7.8); NEUTROPHILS % (AUTO) 91 % (42-75); PLATELET COUNT 335 10^3/uL (130-400); RED BLOOD COUNT 3.81 10^6/uL (4.35-5.85); RED CELL DISTRIBUTION WIDTH 14.7 % (10.0-14.5); WHITE BLOOD COUNT 14.8 10^3/uL (4.3-11.0)
[2018-04-19 07:13] LABS: ALBUMIN 3.1 GM/DL (3.2-4.5); BILIRUBIN,TOTAL 0.4 MG/DL (0.1-1.0); CALCIUM 8.3 MG/DL (8.5-10.1); CREATININE SERUM 1.69 MG/DL (0.60-1.30); POTASSIUM 3.9 MMOL/L (3.6-5.0); TOTAL PROTEIN 6.3 GM/DL (6.4-8.2)
[2018-04-19] MEDS: RT-ALBUTEROL/IPRATROPIUM 3 ML (DUONEB) VIAL INH SCH ×4 (07:26→19:09)
[2018-04-19 07:29] LABS: LYMPHOCYTES % (MANUAL) 2 %; MONOCYTES % (MANUAL) 4 %; NEUTROPHILS % (MANUAL) 94 %; RBC MORPH NORMAL; TOXIC GRANULATION/VACUOLAZATIO 1+
[2018-04-19 08:00] VITALS: BP 108/68
[2018-04-19] MEDS: methylPREDNISolone 40 MG/ML (Solu-MEDROL) VIAL IV SCH ×3 (08:19→21:32)
[2018-04-19] MEDS: NYSTATIN CREAM (MYCOSTATIN) 30 GM TUBE TP SCH ×3 (08:20→21:32)
[2018-04-19] MEDS: APIXABAN 5 MG (ELIQUIS) TABLET PO SCH ×2 (08:20→21:32)
[2018-04-19] MEDS: ASPIRIN E.C. 81 MG (ECOTRIN) TAB PO SCH (08:20)
[2018-04-19] MEDS: DILTIAZEM 240 MG (CARDIZEM CD) CAP PO SCH (08:20)
[2018-04-19] MEDS ORDERED: methylPREDNISolone 40 MG/ML (Solu-MEDROL) VIAL IV SCH (09:00)
--- NOTE | 2018-04-19 09:39 | Physical Therapy Daily Note ---
PT Daily Note-Current Subjective Pain rated 5/10 in abdomen and (R) UE. Pt was visited x 2 this morning. Pt adamantly refused treatment despite repeated attempts to encourage pt to just get up to the chair. Pt reports he is in his most comfortable position at the moment and says when he gets up and sits he cannot breath. Transfers Functional [place] Measure 0=Not Assessed/NA 4=Minimal Assistance 1=Total Assistance 5=Supervision or Setup 2=Maximal Assistance 6=Modified [place] 3=Moderate Assistance 7=Complete IndependenceIRFPAI Quality Coding Scale 6 Independent with activity with or without an assistive device 5 Patient requires set up or clean up by helper. Patient completes activity by themselves 4 Supervision or touching assist (CGA). [place] provide cues , steadying assist 3 The helper provides less than half the effort to complete the activity 2 The helper provides more than half the effort to complete the activity 1 Dependent. The helper does all the effort to complete an activity 7 Patient refused to complete or attempt activity 9 The patient did not perform the activity before the current illness or injury 88 Not attempted due to Medical conditions or safety concerns Weight Bearing Right Lower Extremity: Right Full Weight Bearing Left Lower Extremity: Left Full Weight Bearing Assessment Current Status: Refused Treatment Pt with call light and all needs met. PT Short Term Goals Short Term Goals Time Frame: Apr 18, 2018 Transfers (B,C,W/C) (FIM): 5 Gait (FIM): 1 Distance (FIM): 1=up to 49 ft Gait Distance Comment: 25' Gait Level of Assist: 5 Gait Assistive Device: FWW PT Plan Treatment/Plan Treatment Plan: Continue Plan of Care Treatment Plan: Bed Mobility, Education, Functional Activity [place], Functional Strength, Gait, Safety, Therapeutic Exercise, Transfers Treatment Duration: Apr 18, 2018 Frequency: 4 times per week Estimated Hrs Per Day: .25 hour per day Patient and/or Family Agrees t: Yes Time/GCodes Time In: 920 Time Out: 930 Total Billed Treatment Time: 0 Total Billed Treatment no treatment MIGDALIA FERNANDO CPTA Apr 19, 2018 09:39
[2018-04-19] MEDS ORDERED: FUROSEMIDE 40 MG/4 ML INJ (LASIX) IVP NR (10:15)
[2018-04-19] MEDS: NS IV 1000 ML 1,000 ML IV SCH (10:26)
--- NOTE | 2018-04-19 10:54 | Progress Note-Hospitalist ---
Subjective HPI/CC On Admission Date Seen by Provider: Apr 19, 2018 Time Seen by Provider: 10:30 Subjective/Events-last exam Nurse called me at 230 this morning due to shortness of breath patient was maintained DO NOT RESUSCITATE oxygen supplementation was increased and I gave a dose of IV Lasix and IV Solu-Medrol which helped him along with morphine IV Patient is really unable to recover from the severity of his acute illnesses considering volume overload and COPD respiratory failure and I did talk to him about comfort care and he is agreeable maintain stand or status and will implement and plan comfort care orders into the current orders with IV medication to continue but patient is predicted to have a major decline and ultimately not be old recover from this current illness. Hemoptysis continues but it is very mild and I reviewed the CT scan Review of Systems General: Fatigue, Malaise Pulmonary: Dyspnea Objective Exam Vital Signs Vital Signs Date Time Temp Pulse Resp B/P (MAP) Pulse Ox O2 Delivery O2 Flow Rate FiO2 04/19/18 12:00 98.9 81 28 92/57 (69) 94 Vapotherm 85.00 35.00 04/19/18 10:25 85 Capillary Refill : Less Than 3 Seconds General Appearance: WD/WN, Chronically ill, Moderate Distress (tachypnea) Respiratory: Crackles, Decreased Breath Sounds, Wheezing Cardiovascular: Regular Rate, Rhythm, No Edema Neurologic/Psychiatric: Alert, Oriented x3, No Motor/Sensory Deficits, Depressed Affect Results/Procedures Lab Laboratory Tests 04/18/18 16:10 04/19/18 05:37 Patient resulted labs reviewed. Assessment/Plan Assessment and Plan Assess & Plan/Chief Complaint Assessment: Respiratory failure unable to improve and stop progression to end-of-life status Plan: DO NOT RESUSCITATE Comfort care orders blended into the current orders of IV Lasix and Solu-Medrol and the rest of the medications he currently is taking Poor prognosis Diagnosis/Problems Diagnosis/Problems (1) Volume overload Status: Acute Qualifiers: Hypervolemia type: unspecified Qualified Codes: E87.70 - Fluid overload, unspecified (2) Respiratory failure Status: Acute Qualifiers: Chronicity: acute on chronic Respiratory failure complication: unspecified whether with hypoxia or hypercapnia Qualified Codes: J96.20 - Acute and chronic respiratory failure, unspecified whether with hypoxia or hypercapnia (3) Hemoptysis Status: Acute (4) Poor prognosis Status: Acute (5) DNR (do not resuscitate) Status: Acute (6) Hypoxia Status: Acute (7) Generalized weakness Status: Acute (8) RENAL INSUFFICIENCY Status: Acute (9) Debility Status: Acute Clinical Quality Measures DVT/VTE Risk/Contraindication: Risk Factor Score Per Nursin RFS Level Per Nursing on Admit: 4+=Very High ZUNILDA SOLOMON DO Apr 19, 2018 10:54
[2018-04-19] MEDS ORDERED: ARTIFICIAL TEARS OINT (LACRI-LUBE) 3.5 GM TUBE OU PRN (11:00)
[2018-04-19] MEDS ORDERED: LORazepam INJ 2 MG/ML (ATIVAN) VIAL IVP PRN (11:00)
[2018-04-19] MEDS ORDERED: ONDANSETRON 4 MG/2 ML (SDV) Z0FRAN IVP PRN (11:00)
[2018-04-19] MEDS ORDERED: BISACODYL 10 MG SUPP (DULCOLAX) PR PRN (11:00)
[2018-04-19] MEDS ORDERED: GLYCOPYRROLATE 0.2 MG/ML (ROBINUL) 2 ML VIAL IV PRN (11:00)
[2018-04-19] MEDS ORDERED: SALIVA STIMULANT MOUTH SPRAY (BIOTENE) 1.5 OZ MM PRN (11:00)
[2018-04-19] MEDS ORDERED: ACETAMINOPHEN 650 MG SUPP (TYLENOL) PR PRN (11:00)
[2018-04-19] MEDS ORDERED: ARTIFICAL TEARS 0.4 ML UNIT DOSE (REFRESH PLUS) OU PRN (11:00)
--- NOTE | 2018-04-19 11:08 | Progress Note-Cardiology ---
Cardiology SOAP Progress Note Subjective: No cp or palp or syncope or shortness of breath Objective: I&O/Vital Signs 04/19/18 04/19/18 04/19/18 04/19/18 00:00 01:00 01:08 04:00 Temp 97.8 98.2 Pulse 79 101 84 Resp 22 18 B/P (MAP) 114/72 (86) 120/77 (91) Pulse Ox 88 89 88 O2 Delivery High Flow N/C High Flow N/C High Flow N/C O2 Flow Rate 10.00 15.00 10.00 04/19/18 04/19/18 04/19/18 07:26 08:00 10:25 Temp 97.4 Pulse 83 Resp 20 B/P (MAP) 108/68 (81) Pulse Ox 93 92 93 O2 Delivery High Flow N/C High Flow N/C Vapotherm O2 Flow Rate 15.00 15.00 35.00 15.00 FiO2 85 04/19/18 00:00 Intake Total 2540 ml Output Total 200 ml Balance 2340 ml Weight (Pounds): 203 Weight (Ounces): 2.0 Weight (Calculated Kilograms): 92.785343 Constitutional: AAO x 3 Respiratory: crackles (bilat LL), wheezing (scattered) Cardiovascular: regular rate-rhythm; No JVD; S1 and S2 Gastrointestional: No tender; soft, audible bowel sounds Extremities: swelling, no lower extremity edema bilateral Neurologic/Psychiatric: grossly intact Skin: No rash, No ulcerations Results/Procedures: Labs Laboratory Tests 04/18/18 16:10: Sodium Level 137, Potassium Level 3.8, Chloride Level 103, Carbon Dioxide Level 21, Anion Gap 13, Blood Urea Nitrogen 56H, Creatinine 2.03H, Estimat Glomerular Filtration Rate 31, BUN/Creatinine Ratio 28, Glucose Level 150H, Calcium Level 8.5, Phosphorus Level 3.3, Albumin 3.2 04/19/18 05:37: Sodium Level 136, Potassium Level 3.9, Chloride Level 105, Carbon Dioxide Level 20L, Anion Gap 11, Blood Urea Nitrogen 51H, Creatinine 1.69H, Estimat Glomerular Filtration Rate 39, BUN/Creatinine Ratio 30, Glucose Level 145H, Calcium Level 8.3L, Albumin 3.1L, White Blood Count 14.8H, Red Blood Count 3.81L , Hemoglobin 11.1L, Hematocrit 34L, Mean Corpuscular Volume 89, Mean Corpuscular Hemoglobin 29, Mean Corpuscular Hemoglobin Concent 33, Red Cell Distribution Width 14.7H, Platelet Count 335, Mean Platelet Volume 9.4, Neutrophils (%) (Auto) 91H, Lymphocytes (%) (Auto) 1L, Monocytes (%) (Auto) 7, Eosinophils (%) (Auto) 0, Basophils (%) (Auto) 0, Neutrophils # (Auto) 13.5H, Lymphocytes # (Auto) 0.2L, Monocytes # (Auto) 1.1H, Eosinophils # (Auto) 0.0, Basophils # (Auto) 0.0, Neutrophils % (Manual) 94, Lymphocytes % (Manual) 2, Monocytes % (Manual) 4, Toxic Granulation 1+, Blood Morphology Comment NORMAL, Total Bilirubin 0.4, Aspartate Amino Transf (AST/SGOT) 25, Alanine Aminotransferase (ALT/SGPT) 17, Alkaline Phosphatase 65, B-Type Natriuretic Peptide 428.6H, Total Protein 6.3L Microbiology 04/14/18 Blood Culture - Preliminary, Resulted No growth Laboratory Tests 04/18/18 05:30 04/18/18 16:10 04/19/18 05:37 A/P: Assessment: New onset a-fib with RVR - first documented on ECG of 04-17-18 - currently SR with PVC's Nonspecific chest discomfort with new onset of a-fib - now resolved HTN Hypoxia, bilateral pulmonary infiltrate, receiving treatment for pneumonia, Dr. Simms managing Left ventricular hypertrophy with normal systolic function (LVEF 50-55%), early diastolic dysfunction - per echo by Dr. Prasad Debility with generalized weakness and loss of energy. Receiving physical therapy Poor hygiene, bed bug infection, in isolation Acute renal insufficiency and leucocytosis, managed by the Med Svce Plan: Continue current medications I spoke with him and answered CV-related questions Monitor lab JUAN J MAGANA MD FACP FAC CCDS Apr 19, 2018 11:08
[2018-04-19 12:00] VITALS: BP 92/57
[2018-04-19] MEDS: morphine INJ 4 MG/ML 1 ML (VIAL/SYRINGE) IV PRN ×2 (13:50→23:14)
[2018-04-19 16:55] VITALS: BP 103/63
[2018-04-19 19:59] VITALS: BP 111/63
--- NOTE | 2018-04-20 10:01 | Discharge Summary-Hospitalist ---
Diagnosis/Chief Complaint Date of Admission Apr 14, 2018 at 20:21 Date of Discharge Apr 20, 2018 at 04:56 Discharge Diagnosis (1) due to respiratory failure Status: Acute (2) Volume overload Status: Acute (3) Respiratory failure Status: Acute (4) Hemoptysis Status: Acute (5) Poor prognosis Status: Acute (6) DNR (do not resuscitate) Status: Acute (7) Hypoxia Status: Acute (8) Generalized weakness Status: Acute (9) RENAL INSUFFICIENCY Status: Acute (10) Debility Status: Acute Discharge Summary Discharge Physical Exam Allergies: Coded Allergies: No Known Drug Allergies (Unverified , 05/09/10) Vitals & I&Os Vital Signs Date Time Temp Pulse Resp B/P (MAP) Pulse Ox O2 Delivery O2 Flow Rate FiO2 04/19/18 20:30 High Flow N/C 40.00 04/19/18 19:59 97.0 102 20 111/63 (79) 04/19/18 19:14 91 90 General Appearance: Other (pt ) Hospital Course Hospital course: Patient had a standard hospital course he was admitted for respiratory insufficiency so he was treated per protocol but volume overload and severity of COPD confirmed on CT scan of interstitial pneumonitis gave rise to significant volume overload and chronic hypoxemia that continued to progress giving rise to a major declined that did not respond to IV Lasix and IV steroids and even high flow Vapotherm and he was DO NOT RESUSCITATE we have talked about that in depth and he understood severity of his lung disease that could not be modified to Levaquin out his life and he declined more patient was blended with comfort care orders along with continuing the current orders but he declined rapidly at 2230 hrs. on Saturday night and he was pronounced respiratory failure at 0220 hours. Labs (last 24 hrs) Microbiology 04/14/18 Blood Culture - Final, Complete No growth Patient resulted labs reviewed. Discussion & Recommendations Discharge Planning: <30 minutes discharge planning Discharge Home Medications: Active Scripts Active Reported Meloxicam 7.5 Mg Tablet 7.5 Mg PO DAILY Furosemide 20 Mg Tablet 20 Mg PO DAILY Ferosul (Ferrous Sulfate) 325 Mg Tablet 325 Mg PO BID LAST FILLED #60 02-25-18 Aspirin EC (Aspirin) 81 Mg Tablet. 81 Mg PO DAILY Instructions to patient/family Please see electronic discharge instructions given to patient. Clinical Quality Measures DVT/VTE Risk/Contraindication: Risk Factor Score Per Nursin RFS Level Per Nursing on Admit: 4+=Very High Problem Qualifiers (1) Volume overload: Hypervolemia type: unspecified Qualified Codes: E87.70 - Fluid overload, unspecified (2) Respiratory failure: Chronicity: acute on chronic Respiratory failure complication: unspecified whether with hypoxia or hypercapnia Qualified Codes: J96.20 - Acute and chronic respiratory failure, unspecified whether with hypoxia or hypercapnia ZUNILDA SOLOMNO DO Apr 20, 2018 10:01
--- NOTE | 2018-04-24 08:39 | Physician Query Clarification ---
PQ-Uncertain Diagnosis Admission/Discharge Admission Date: Apr 14, 2018 at 20:21 Discharge Date: Apr 20, 2018 at 04:56 The medical record reflects the following clinical scenario: History/Risk Factors: chest pain, pulmonary edema Clinical Findings infiltrates, elevated BNP Treatment: antibiotics, Furosemide Question: Are pneumonia and acute CHF a clinically valid diagnosis? pneumonia was documented by Cardiology, attending states infiltrates are probably pulmonary edema. Also, if acute CHF is a valid diagnosis, please specify if systolic or diastolic. Please document a response below. PHYSICIAN RESPONSE Diagnosis clinically valid: Yes, Conditon resolved In responding to this query, please exercise your independent professional judgment. The purpose of this communication is to more accurately reflect the complexity of your patients condition. The fact that a question is asked does not imply that any particular answer is desired or expected. Thank you for your timely response to this clarification. Requestors name: Jacque Phone # [phone] THIS PHYSICIAN QUERY FORM IS A PERMANENT PART OF THE MEDICAL RECORD JACQUE LOVING Apr 24, 2018 08:39 ZUNILDA SOLOMON DO Apr 24, 2018 17:19
--- NOTE | 2018-04-24 08:45 | Physician Query Clarification ---
PQ-Present on Admission Admission/Discharge Admission Date: Apr 14, 2018 at 20:21 Discharge Date: Apr 20, 2018 at 04:56 Question: Acute respiratory failure was documented in the discharge summary. Can you specify if this condition was present on admission? Please document a response below. PHYSICIAN RESPONSE Condition was Present on Admit: Yes In responding to this query, please exercise your independent professional judgment. The purpose of this communication is to more accurately reflect the complexity of your patients condition. The fact that a question is asked does not imply that any particular answer is desired or expected. Thank you for your timely response to this clarification. Requestors name: Jacque Phone # [phone] THIS PHYSICIAN QUERY FORM IS A PERMANENT PART OF THE MEDICAL RECORD JACQUE LOVING Apr 24, 2018 08:45 ZUNILDA SOLOMON DO Apr 24, 2018 17:19
--- NOTE | 2018-04-24 08:46 | Physician Query-General Query ---
Physician Query-General Query to Physician: Please document cause of . PHYSICIAN RESPONSE: Based on the clinical findings in the record, please respond to the query above on this document as an addendum. Possible, probable, or questionable diagnosis can be coded for INPATIENTS ONLY. Physician Response: Physician Response Respiratory failure If you have questions please contact: Export Freight Specialist: Ext: Thank you for your time and cooperation. Clinical Business Applications Specialist/Export Freight Specialist This is a permanent part of the medical record NAYLA LOVING Apr 24, 2018 08:46 ZUNIDLA SOLOMON DO Apr 24, 2018 17:20
--- NOTE | 2018-04-25 18:13 | Physician Query Clarification ---
PQ-CHF Specificity The medical record reflects the following clinical scenario: History/Risk Factors: pulmonary edema Clinical Findings: elevated BNP Treatment: Furosemide Question: Can you further specify the acuity &/or type of CHF per the clinical indicators above? Please document a response below PHYSICIAN RESPONSE Acuity: Acute on Chronic Type: Systolic & Diastolic In responding to this query, please exercise your independent professional judgment. The purpose of this communication is to more accurately reflect the complexity of your patients condition. The fact that a question is asked does not imply that any particular answer is desired or expected. Thank you for your timely response to this clarification. Requestors name: [ ] Phone # [ ] THIS PHYSICIAN QUERY FORM IS A PERMANENT PART OF THE MEDICAL RECORD NAYLA LOVING Apr 25, 2018 18:13 ZUNILDA SOLOMON DO Apr 28, 2018 09:38
== END 2018-04-20 04:56 | disposition expired | DRG 291 ==
LOC: EDUNIT# 15:04 → ER 15:05 → 4TH 20:21
PROVIDERS: ADMIT Family Medicine; ATTEND Family Medicine
DX: I13.0 Hypertensive heart and chronic kidney disease with heart failure and stage 1 through stage 4 chronic kidney disease, or unspecified chronic kidney disease (principal); I50.43 Acute on chronic combined systolic (congestive) and diastolic (congestive) heart failure; N18.3 Chronic kidney disease, stage 3 (moderate); J96.20 Acute and chronic respiratory failure, unspecified whether with hypoxia or hypercapnia; J18.9 Pneumonia, unspecified organism; J81.1 Chronic pulmonary edema; N17.9 Acute kidney failure, unspecified; R04.2 Hemoptysis; Z66 Do not resuscitate; Z51.5 Encounter for palliative care; I48.91 Unspecified atrial fibrillation; R07.89 Other chest pain; R91.8 Other nonspecific abnormal finding of lung field; J44.9 Chronic obstructive pulmonary disease, unspecified; G47.30 Sleep apnea, unspecified; B88.8 Other specified infestations; M17.12 Unilateral primary osteoarthritis, left knee; R19.7 Diarrhea, unspecified; R54 Age-related physical debility; E87.70 Fluid overload, unspecified; Z96.651 Presence of right artificial knee joint; Z91.19 Patient's noncompliance with other medical treatment and regimen; Z59.1 Inadequate housing; Z99.81 Dependence on supplemental oxygen
CPT/HCPCS: 36415; 36600; 71045; 71250; 73000; 73030; 80048; 80053; 80061; 80069; 81000; 82550; 82805; 83605; 83735; 83874; 83880; 84443; 84484; 85007; 85025; 85027; 85610; 85730; 86141; 87040; 87077; 93005; 93041; 93306; 94640; 94760; 96365